=== PATIENT | female | born 1985 | race Caucasian/White ===

== ENCOUNTER 2017-06-11 10:40 | Emergency (ER) | payer MEDICAID, SELFPAY ==
[2017-06-11 10:40] VITALS: BP 134/69; PULSE 108; RESP 15; TEMP 36.1; BMI 18.4
[2017-06-11] MEDS: HYDROcodone Bitartrate/Apap 5/325 Tablet PO (11:19)
--- NOTE | 2017-06-11 11:24 | ED.DCSUM_ITS ---
- ER Visit Summary Date of Service: 06/11/17 Chief Complaint: Left ear pain History of Present Illness: The patient is a 31 F with severe left ear pain and swelling. The patient had a clot in her ear. She tried peroxide and antibiotic ointment, but the pain and swelling is getting worse. No other significant medical history or symptoms. Physical Examination: Left ear diffusely swollen. Tragus tender. Jermyn tender with motion. Trauma and hearing are grossly intact. Skin appears intact. No lymphadenopathy. Test Results: None indicated Emergency Department Course and Treatment: Ear wick placed. Will start the patient on Ciprodex. Follow-up with ENT. Treatment Plan: As above Disposition: Discharged Impression: 1. Acute otitis externa, left This note was generated with [employer] dictation software. It may contain incorrect words, spelling, and punctuation that were not noted in review of the chart prior to signing ED Disposition - Plan for ED Patient: Chief Complaint: Ear Problem Referrals: Care Physician,No Primary [Primary Care Provider] -
--- NOTE | 2017-06-11 11:24 | ED.DEP ---
ED Disposition - Plan for ED Patient: Chief Complaint: Ear Problem Instructions: ED Otitis Externa Prescriptions: Ciprofloxacin HCl/Dexameth [Ciprodex Otic Suspension] 4 drp LEFT EAR BID 7 Days drops.susp Referrals: Cesar Allen MD [STAFF PHYSICIAN] -
[2017-06-11 11:30] VITALS: PULSE 99; RESP 22; O2SAT 99
--- NOTE | 2017-06-11 11:31 | ED.RN ---
THIS NURSE REVIEWED D/C INSTRUCTIONS WITH PT. PT VERBALIZED UNDERSTANDING OF INSTRUCTIONS. PT DENIES FURTHER NEEDS OR QUESTIONS AT THIS TIME. PT AMBULATES FROM ROOM ON OWN WITHOUT ASSISTANCE FROM STAFF
== END 2017-06-11 11:32 | disposition home or self-care (01) ==
PROVIDERS: Emergency Provider Emergency Medicine
DX: H60.502 Unspecified acute noninfective otitis externa, left ear (principal); Z72.0 Tobacco use
CPT/HCPCS: 99282

== ENCOUNTER 2018-05-31 09:27 | Outpatient (CLI) | payer MEDICAID, SELFPAY ==
[2018-05-31 10:07] VITALS: BMI 28.5
[2018-05-31 10:14] LABS: Color, Urine Yellow (Yellow); Glucose, Dipstick Normal (Normal); Ketone-Dipstick Negative (Negative); Leukocyte Esterase-Dipstick 25 /ul (Negative); Mucous, Urine 0 SEEN /hpf (<or=2+); Nitrite-Dipstick Negative (Negative); Occult Blood-Urine Negative /ul (Negative); Protein-Dipstick Negative (Negative); Specific Gravity, Urine 1.005 (1.002-1.030); Urine Bilirubin Dipstick Negative (Negative); Urine Clarity Sl. Cloudy (Clear); Urine Urobilinogen Normal (Normal)
[2018-05-31 10:27] LABS: Bacteria 1+ /hpf (None Seen); Red Blood Cells-Urine 0-5 SEEN /hpf (0-5); Squamous Epithelial Cells - UA 0-5 SEEN /hpf (5-10); White Blood Cells 0-5 SEEN /hpf (0-5)
[2018-05-31 10:32] LABS: Amphetamine Urine VISTA NEGATIVE (<1000 ng/mL); Barbiturate Urine VISTA NEGATIVE (< 200 ng/mL); Benzodiazepine Urine VISTA NEGATIVE (< 200 ng/mL); Cocaine Urine VISTA NEGATIVE (< 300 ng/mL); Ecstacy Urine VISTA NEGATIVE (< 500 ng/mL); Methadone Urine VISTA NEGATIVE (< 300 ng/mL); PCP Urine VISTA NEGATIVE (< 25 ng/mL); THC Urine VISTA POSITIVE (< 50 ng/mL); Vista UDS pH Range 6
--- NOTE | 2018-05-31 18:30 | OB.TRI.NOTE ---
- Problem List (1) Feeling pelvic pressure during in third trimester, antepartum Status: Acute History of Present Illness Date of Service: 05/31/18 Was patient seen by the physician?: No Reason For Visit: R/O LABOR Date of Service: 05/31/18 Final ANILA: 06/26/18 Final ANILA Source: US <20 weeks Gestational age: 36 Weeks and 2 Days History of Present Illness: Patient presents to triage for evaluation of pelvic pressure and overall discomfort. Patient denies regular ctx or vaginal discharge. Denies vaginal bleeding or dysuria. Patient notes +FM noted. Allergies Penicillins Allergy (Verified 05/31/18 10:01) Swelling Laboratory Studies: Laboratory Tests 05/31/18 05/31/18 Range/Units 09:57 09:57 Urine Color Yellow (Yellow) Urine Clarity Sl. Cloudy (Clear) Urine pH 7.0 (5.0 - 8.0) Ur Specific [place] 1.005 (1.002-1.030) Urine Protein Negative (Negative) mg/dl Urine Glucose (UA) Normal (Normal) mg/dl Urine Ketones Negative (Negative) mg/dl Urine Occult Blood Negative (Negative) /ul Urine Nitrite Negative (Negative) Urine Bilirubin Negative (Negative) mg/dL Urine Urobilinogen Normal (Normal) mg/dl Ur Leukocyte Esterase 25 H (Negative) /ul Urine RBC 0-5 SEEN (0-5) /hpf Urine WBC 0-5 SEEN (0-5) /hpf Ur Squamous Epith Cells 0-5 SEEN (5-10) /hpf Urine Bacteria 1+ (None Seen) /hpf Urine Mucus 0 SEEN (<or=2+) /hpf Urine Opiates Screen NEGATIVE (< 300 ng/mL) Urine Methadone Screen NEGATIVE (< 300 ng/mL) Ur Barbiturates Screen NEGATIVE (< 200 ng/mL) Ur Phencyclidine Scrn NEGATIVE (< 25 ng/mL) Ur Amphetamines Screen NEGATIVE (<1000 ng/mL) U Methamphetamin-MDMA NEGATIVE (< 500 ng/mL) U Benzodiazepines Scrn NEGATIVE (< 200 ng/mL) Urine Cocaine Screen NEGATIVE (< 300 ng/mL) U Cannabinoids Screen POSITIVE H (< 50 ng/mL) Ur Drug Screen Comment Review of Systems Constitutional: Denies: Chills, Fever, Weight Change HEENT: Denies: Head Aches, Sinus Congestion, Sinus Drainage Cardiovascular: Denies: Chest Pain, Palpitations Respiratory: Denies: Cough, Shortness of breath at rest, Sputum production Gastrointestinal: Denies: Abdominal Pain, Nausea, Vomiting Genitourinary: Denies: Dysuria Gynecological: Denies: Vaginal discharge, Vaginal itching Musculoskeletal: Denies: Joint Pain, Joint Tenderness Skin: Denies: Rash, Wounds Neurological: Denies: Numbness, Tingling, Focal weakness Psychiatric: Denies: Anxiety, Depression, Homicidal Ideations, Suicidal Ideations Hematologic/ Lymphatic: Denies: Easy Bruising, Easy Bleeding Comment: ROS obtained per nursing report Physical Exam Vitals: Normotensive and Afebrile per nursing exam. PE performed by nursing staff. Estimated gestational size: Appropriate for gestational size Presentation: Cephalic Cervix Dilation (cm): 0 - Done by nursing staff Station: -3 Effacement (%): 0 NST - FHR Rate Baby A Baseline: 120 Variability:: Moderate Accelerations:: 15 x 15 Decelerations:: None NST Reactive:: Yes, Appropriate for gestational age FHR Category:: Category I Uterine Activity:: Irregular contractions q 2-8 minutes apart nonpalpable to mildly palpable Impression/Plan 32 y/o @ 36.2 weeks, False Labor, Category I FHT P: 1) Discharge to home 2) [facility] teaching and PTL precautions reviewed 3) RTC in 1 week for next scheduled visit Shelly MIRANDA
== END 2018-05-31 10:25 | disposition home or self-care (01) ==
LOC: WPOUT 09:29 → OBT 09:29
PROVIDERS: Advanced Practice Midwife; Referring Provider Obstetrics & Gynecology; Visit Provider Obstetrics & Gynecology
DX: O47.03 False labor before 37 completed weeks of gestation, third trimester (principal); Z3A.36 36 weeks gestation of pregnancy
CPT/HCPCS: 59025; 59050; 80307; 81001; 99218; G0378

== ENCOUNTER 2018-06-19 14:40 | Inpatient (IN) | payer MEDICAID, SELFPAY ==
[2018-06-19] MEDS: Lactated Ringers 1,000 ML 50 ML IV (15:37)
[2018-06-19 15:38] VITALS: BMI 28.1
[2018-06-19 16:05] LABS: Absolute Lymphocyte Count 3.66 X10^3/ul (0.83-4.51); Absolute Neutrophil Count 8.6 X10^3/uL (2.0-7.7); Basophil# 0.02 X10^3/uL; Basophil% 0.1 % (0-1); Eosinophil# 0.18 X10^3/uL; Eosinophils% 1.3 % (0-5); Hematocrit 38.9 % (37-47); Lymphocyte # 3.66 X10^3/ul (4.0); Lymphocyte % 26.8 % (19-41); Mean Corp Hgb Conc 33.4 g/gl (32-36); Mean Corpuscular Hgb 30.7 pg (27.0-32.0); Mean Corpuscular Volume 91.7 fL (81-99); Mean Platelet Vol. 11.8 fl (6.2-12.0); Monocyte# 1.13 X10^3/uL; Monocyte% 8.3 % (0-10); Neutrophil % 62.8 % (47-70); POSITIVE COUNT NO; POSITIVE DIFFERENTIAL NO; POSITIVE MORPHOLOGY NO; Platelet Count 238 K/mm3 (150-450); RBC Distribution Width CV 14.2 % (11.6-14.6); RBC Distribution Width SD 47.5 fl (35.1-43.9); Red Blood Count 4.24 M/mm3 (4.2-5.4); White Blood Count 13.7 K/mm3 (4.4-11.0)
--- NOTE | 2018-06-19 16:10 | PLAC_PTH ---
PATIENT: NATALYA TOLBERT LOC: [facility] U#:[id number] AGE/SX: 32/F ROOM: WP003 RE06/19/[address]: Dr. Ana Tarango MD : [id number] BED: 1 DIS: 06/20/2018 SPEC #: [id number] RECD: 06/20/18 12:55 STATUS: TANI RENorbert #: [id number] SAMANTHA: 06/19/18 16:[address]: Ana Tarango DEPT: SURGICAL PATHOLOGY RECD BY: Slim Michael ENTERED: 06/20/18 12:57 SP TYPE: PLACENTA OTHR DR: No Primary Care Phys Tissues: Placenta, NOS Procedures: Surgery Specimen Level V HEADER OPERATION: Vaginal delivery PRE-OP DIAGNOSIS: Precipitous delivery TISSUE SUBMITTED: Placenta MICROSCOPIC DIAGNOSIS Placenta: Placental disc - third trimester placenta (667 gm). Membranes - no pathologic diagnosis. Umbilical cord - three blood vessels and no pathologic diagnosis. SJ:rin 06/22/18 MICROSCOPIC DESCRIPTION Slides are reviewed. GROSS DESCRIPTION SPECIMEN: PLACENTA / CLINICAL INFORMATION: A. Weight: 3.491 kg B. Gestational Age: 39 weeks C. Sex: Male PLACENTAL WEIGHT (POST FIXATION): 667 gm PLACENTAL DIMENSIONS: 18.5 x 18 x 3 cm PLACENTAL SHAPE: Usual ovoid PLACENTAL WEIGHT FOR GESTATIONAL AGE: >99th percentile MEMBRANES - Present A. Insertion: Marginal B. Site of rupture from edge: 3 cm from edge of placental disc C. Color of membrane: Opaque to translucent D. Abnormalities: None UMBILICAL CORD - Present A. Color: Rooney-rust B. Insertion: Paracentral C. Length: 38 cm D. Diameter: 1.2 cm E. Number of vessels: Three F. Abnormalities: None PLACENTAL DISC - Present A. Color of surface: Bluish-rust with minimal yellow subchorionic plaque (maximal 0.4 cm) B. surface abnormalities: None C. Maternal cotyledons: Intact with minimal tears D. Attached retro placental clot: No clot E. Cut surface: Dark red and spongy. The surface shows some areas of yellow granularity. F. Lesions: None G. Separate clot: Absent SECTIONS SUBMITTED: 1. Cord, end, membranes 2. Cord, maternal end, membranes 3. Central placenta, surface 4. Peripheral placenta 5. Central placenta, maternal surface CE:rin 06/21/18 TC:5 CPT: 95862
[2018-06-19] MEDS: Oxytocin 30 units/NS 500 ml 30 UNITS/500 ML IV.SOLN 334 UNITS IV (16:16)
--- NOTE | 2018-06-19 16:33 | PCM.OB.VAG ---
Vaginal Delivery Maternal Presentation: Active Labor Amniotic Membrane Rupture Type: Spontaneous Amniotic Fluid Description: Clear Final ANILA: 06/26/18 Final ANILA Source: US <20 weeks Gestational age: 39 Weeks and 0 Days Date of Procedure: 06/19/18 Pre-Operative Diagnosis: labor Post-Operative Diagnosis: labor Surgery/ Procedure Performed: Spontaneous Vaginal Delivery Type of Anesthesia: Local with 1% lidocaine - 15 cc Description of Procedure: A vigorous male was delivered EZEKIEL over a second-degree perineal laceration. A loose nuchal cord ?1 was easily reduced. The remainder the infant was delivered with maternal pushing and gentle traction only in less than 15 seconds. I arrived in the room as patient was delivering. The Pitocin infusion was initiated for active management of the third stage. The cord was clamped and cut. The was attended to by the waiting nursing staff. The placenta was delivered spontaneously and intact. The cervix and vagina were intact. The second-degree perineal laceration was repaired with 3-0 Vicryl suture in a running standard fashion. Sponge and needle counts were correct. A vaginal sweep was completed by me. Presentation: EZEKIEL Placental Delivery Description: Spontaneous Placenta Disposition: Sent to Pathology Cord Vessel Description: 3 Vessels Nuchal Cord Compression: Without compression Cord Gases drawn per routine: ABG, VBG Cord Entanglement: Around neck x 1, loose Drain: - - none Estimated Blood Loss: 200 Infant A gender: Male Episiotomy Description: None Laceration: 2nd degree - perineal Medications given after delivery: IV Pitocin Complications: None
--- NOTE | 2018-06-19 16:39 | PCM.HP.OB ---
History Date of Admission: 06/19/18 Final ANILA: 06/26/18 Final ANILA Source: US <20 weeks Gestational age: 39 Weeks and 0 Days History of this : This is a 32 year-old, who presents at 39 weeks gestation complaining of contractions and some bloody show. was complicated today by tobacco use, marijuana use, bipolar disorder, had polyhydramnios that that has now resolved to normal fluid level. Arrived to the office mehdi and was found to be 3 cm 90% effaced and she was sent to labor and delivery for admission. Allergies Penicillins Allergy (Verified 05/31/18 10:01) Swelling Home Medications: Home Medications Caplet 05/31/18 Risperdal 15 05/31/18 Smoking Status: Current every day smoker Alcohol: None Substance Use Type: Marijuana Number of Fetus(es): 1 History Past Pregnancies: Past Pregnancies Delivery Date Name GA/Weeks Outcome Route Weight Gender Labor Length Anesthesia Delivery Location Provider FOB Expected Infant Delivery Method: Spontaneous Vaginal Review of Systems Constitutional: Denies: Chills, Fever Cardiovascular: Denies: Chest Pain, Edema Respiratory: Denies: Cough Genitourinary: Denies: Dysuria Skin: Denies: Rash Physical Exam General: Alert, No apparent distress, - - Appears uncomfortable, breathing through contractions Cardiovascular: Regular rate Lungs: Normal air movement Abdomen: Soft, Non-Distended, Gravid, Appropriate for Gestational Age Extremities:: Other - Trace edema MANAGER TRUCK: Normal external genitalia Estimated gestational size: Appropriate for gestational size Presentation: Cephalic Assessment/Plan All Active Problems Feeling pelvic pressure during in third trimester, antepartum (Acute) This is a 32 year-old, avid a 4 para 3 at 39 weeks gestation in spontaneous labor. #1 admit for expectant management for vaginal delivery. Labor was precipitous, and she did not have time after admission to place the epidural. Labor and delivery were precipitous. Placenta sent to pathology due to precipitous nature of delivery.
[2018-06-19] MEDS: Oxytocin 30 units/NS 500 ml 30 UNITS/500 ML IV.SOLN 167 UNITS IV (16:46)
[2018-06-19] MEDS: Naproxen 250 MG Tablet 500 MG PO (17:43)
[2018-06-19 18:49] LABS: Amphetamine Urine VISTA NEGATIVE (<1000 ng/mL); Barbiturate Urine VISTA NEGATIVE (< 200 ng/mL); Benzodiazepine Urine VISTA NEGATIVE (< 200 ng/mL); Cocaine Urine VISTA NEGATIVE (< 300 ng/mL); Ecstacy Urine VISTA NEGATIVE (< 500 ng/mL); Methadone Urine VISTA NEGATIVE (< 300 ng/mL); PCP Urine VISTA NEGATIVE (< 25 ng/mL); THC Urine VISTA POSITIVE (< 50 ng/mL); Vista UDS pH Range 7
[2018-06-19 19:46] VITALS: BP 135/80; PULSE 62; RESP 19; TEMP 37.1; O2SAT 98
--- NOTE | 2018-06-19 19:49 | NURSING ---
194- During initial assessment, pt. resting in bed with visitor and FOB present in room. During conversation, visitor mentioned something about needing a license to drive in which the FOB replied No you don't. I have [address] against me and that don't keep me from driving. This RN concerned if FOB is driving MOB and home upon discharge.
[2018-06-19] MEDS: Acetaminophen 500 MG Tablet 1000 MG PO (19:53)
[2018-06-19 23:43] VITALS: BP 108/63; PULSE 61; RESP 15; TEMP 36.9; O2SAT 95
[2018-06-20] VITALS (7 sets, daily range): BP systolic 119–152; BP diastolic 75–87; PULSE 58–76; RESP 16–18; TEMP 36.2–37.3; O2SAT 96–99
[2018-06-20] MEDS: Naproxen 250 MG Tablet 500 MG PO ×2 (01:41→10:28)
[2018-06-20] MEDS: Acetaminophen 500 MG Tablet 1000 MG PO ×2 (04:46→14:54)
--- NOTE | 2018-06-20 06:49 | PCM.PN.OB ---
Subjective: Pain well controlled, average lochia. Some nausea earlier but feeling better now. - Physical Exam General: Alert, Cooperative, No apparent distress Vital Signs Temp Pulse Resp BP Pulse Ox 99.1 F 58 L 18 145/87 H 99 06/20/18 04:41 06/20/18 04:47 06/20/18 04:41 06/20/18 04:47 06/20/18 04:41 Oxygen Delivery Method Room Air Weight: 69.853 kg Body Mass Index (BMI) 28.1 Intake and Output for Last 24 Hours 06/18/18 06/19/18 06/20/18 23:59 23:59 23:59 Output Total 900 / 900 Balance -900 / -900 Laboratory Tests Past 24 Hrs 06/19/18 06/19/18 06/19/18 15:05 15:05 18:00 WBC 13.7 H RBC 4.24 Hgb 13.0 Hct 38.9 MCV 91.7 MCH 30.7 MCHC 33.4 RDW 14.2 RDW Differential 47.5 H Plt Count 238 MPV 11.8 Immature Gran % (Auto) 0.700 Neut % (Auto) 62.8 Lymph % (Auto) 26.8 [place] % (Auto) 8.3 Eos % (Auto) 1.3 Baso % (Auto) 0.1 Absolute Neuts (auto) 8.6 H Absolute Lymphs (auto) 3.66 Total Counted Not Reportable Urine Opiates Screen NEGATIVE Urine Methadone Screen NEGATIVE Ur Barbiturates Screen NEGATIVE Ur Phencyclidine Scrn NEGATIVE Ur Amphetamines Screen NEGATIVE U Methamphetamin-MDMA NEGATIVE U Benzodiazepines Scrn NEGATIVE Urine Cocaine Screen NEGATIVE U Cannabinoids Screen POSITIVE H Ur Drug Screen Comment Blood Type B POSITIVE Antibody Screen NEGATIVE Medical Necessity - Tobacco Use Smoking Status: Current every day smoker Assessment/Plan All Active Problems Feeling pelvic pressure during in third trimester, antepartum (Acute) day #1 status post spontaneous vaginal delivery. Mental health team consult pending. is bottlefeeding and doing well. She would like to be discharged home later today if that is okay with pediatrics. I discussed with her from maternal standpoint that was acceptable but we would need to wait until other assessments are completed for final disposition on this
--- NOTE | 2018-06-20 06:54 | PCM.DCVAG ---
Discharge Diet: No Restrictions Discharge Activity: Return to Normal Activity, May not drive while taking narcotic pain medications., May Shower May resume sexual activity in: 4-6 weeks Additional Activity Instructions:: Nothing in the vagina for 4-6 weeks. You may return to work/school in 6 weeks. Call your doctor if your incision/area has: Continuous Slow Oozing, Sudden Increased Bleeding, Increased Pain/ Swelling, Increased Redness, Foul Smelling Discharge Additional Instructions: If you experience any of the following, contact your healthcare provider. Bleeding that soaks a pad every hour for 2 hours Fever 100.4 or higher Unrelieved incision or abdominal pain Swelling, redness, discharge or bleeding from your incision or episiotomy site Your incision begins to separate Problems urinating (including inability to urinate or burning while urinating). Visual changes Severe headache Flu-like symptoms Pain or redness in one of both of your breasts Pain, warmth, tenderness or swelling in your legs, especially the calf area Frequent nausea and vomiting Symptoms of depression or anxiety If you experience any of the following, call 911 or go to the nearest Emergency Room. Chest pain Problems breathing Seizure activity Partial or complete paralysis of a body part, slurred speech, weakness or drooping of the face, or a sudden inability to walk or hold your balance Allergies/Adverse Reactions: Allergies Penicillins Allergy (Verified 05/31/18 10:01) Swelling Medications to take at Discharge Caplet 05/31/18 Risperdal 15 05/31/18 Ibuprofen [Motrin] 800 mg PO TID PRN PRN #60 tablet 06/20/18 The following prescriptions were given: Ibuprofen [Motrin] 800 mg PO TID PRN PRN #60 tablet PRN Reason: Pain Please Follow Up With: [phone] When: Call to make an appointment with your provider's office in 1-2 and 6 weeks or as needed Primary Care Physician: Care Physician,No Primary [Primary Care Provider] - Test Results: Test results from this visit will be discussed in further detail at your follow-up appointment, if applicable.
--- NOTE | 2018-06-20 06:55 | DCINST_ITS ---
Discharge Diet: No Restrictions Discharge Activity: Return to Normal Activity, May not drive while taking narcotic pain medications., May Shower May resume sexual activity in: 4-6 weeks Additional Activity Instructions:: Nothing in the vagina for 4-6 weeks. You may return to work/school in 6 weeks. Call your doctor if your incision/area has: Continuous Slow Oozing, Sudden Increased Bleeding, Increased Pain/ Swelling, Increased Redness, Foul Smelling Discharge Additional Instructions: If you experience any of the following, contact your healthcare provider. * Bleeding that soaks a pad every hour for 2 hours * Fever 100.4 or higher * Unrelieved incision or abdominal pain * Swelling, redness, discharge or bleeding from your incision or episiotomy site * Your incision begins to separate * Problems urinating (including inability to urinate or burning while urinating). * Visual changes * Severe headache * Flu-like symptoms * Pain or redness in one of both of your breasts * Pain, warmth, tenderness or swelling in your legs, especially the calf area * Frequent nausea and vomiting * Symptoms of depression or anxiety If you experience any of the following, call 911 or go to the nearest Emergency Room. * Chest pain * Problems breathing * Seizure activity * Partial or complete paralysis of a body part, slurred speech, weakness or drooping of the face, or a sudden inability to walk or hold your balance Allergies/Adverse Reactions: Allergies Penicillins Allergy (Verified 05/31/18 10:01) Swelling Medications to take at Discharge Caplet 05/31/18 Risperdal 15 05/31/18 Ibuprofen [Motrin] 800 mg PO TID PRN PRN #60 tablet 06/20/18 The following prescriptions were given: Ibuprofen [Motrin] 800 mg PO TID PRN PRN #60 tablet PRN Reason: Pain Please Follow Up With: [phone] When: Call to make an appointment with your provider's office in 1-2 and 6 weeks or as needed Primary Care Physician: Care Physician,No Primary [Primary Care Provider] - Test Results: Test results from this visit will be discussed in further detail at your follow- up appointment, if applicable.
[2018-06-20] MEDS: Dibucaine 30 GM Tube 1 APPLIC TOPICAL (07:59)
[2018-06-20] MEDS: MedroxyPROGESTERone 150 MG/ML Syringe IM (10:32)
--- NOTE | 2018-06-20 18:07 | NURSING ---
Called and spoke with Rach from [facility] and patient ok for discharge and will have a [facility] Monday. Dr Saul and Frankie notified.
[2018-06-22 14:58] LABS: Pathology Specimen OB SEE PATHOLOGY REPORT
== END 2018-06-20 19:20 | disposition home or self-care (01) | DRG 560 ==
PROVIDERS: Admitting Provider Obstetrics & Gynecology; Referring Provider Obstetrics & Gynecology; Visit Provider Obstetrics & Gynecology
DX: O69.81X0 Labor and delivery complicated by cord around neck, without compression, not applicable or unspecified (principal); O70.1 Second degree perineal laceration during delivery; O99.334 Smoking (tobacco) complicating childbirth; F17.200 Nicotine dependence, unspecified, uncomplicated; O99.324 Drug use complicating childbirth; F12.90 Cannabis use, unspecified, uncomplicated; Z3A.39 39 weeks gestation of pregnancy; Z37.0 Single live birth
CPT/HCPCS: 59025; 59050; 80307; 85025; 86850; 86900; 88307; 99218; J7120; G0378

== ENCOUNTER 2018-10-29 01:45 | Emergency (ER) | payer MEDICAID, SELFPAY ==
[2018-10-29 01:47] VITALS: BP 139/80; PULSE 105; RESP 16; TEMP 36.5; O2SAT 97; BMI 27.2
--- NOTE | 2018-10-29 02:01 | CT_ITS ---
STUDY: CT ABDOMEN AND PELVIS WITHOUT CONTRAST REASON FOR EXAM: Female, 32 years old. Abdominal pain, nausea and vomiting RADIATION DOSAGE (If Supplied By Facility): CTDIvol = ( 6.96 ) mGy, DLP = ( 330.33 ) mGycm TECHNIQUE: Transaxial images were obtained from the dome of the diaphragm to the symphysis pubis without oral contrast, and without intravenous contrast. Sagittal and coronal images were reconstructed. Individualized dose optimization techniques were used for this CT. COMPARISON: None. FINDINGS: The visualized lung bases are unremarkable. The visualized portions of the heart are within normal limits. Normal liver. Normal gallbladder and extrahepatic biliary system. Normal spleen. Normal pancreas. Normal bilateral adrenal glands. Normal right kidney. Normal left kidney. Normal visualized stomach. Normal small intestine. Normal colon. The appendix is visualized and appears normal. Normal abdominal aorta. Normal inferior vena cava. Normal retroperitoneum. Normal urinary bladder. Normal abdominal wall. Normal osseous structures. There are bilateral breast implants. CT/Abdomen/Pelvis without Cont IMPRESSION: Negative unenhanced CT of the abdomen and pelvis for acute abnormality. Electronically Signed: Marck Peña, at 3:31 EDT Tel , Service support ,
[2018-10-29] MEDS: proMETHazine 25 MG/ML Syringe 12.5 MG IV (02:25)
[2018-10-29] MEDS: 0.9% Normal Saline 1,000 ML 999 ML IV (02:25)
[2018-10-29] MEDS: Dicyclomine 20 MG/2 ML Vial IM (02:25)
[2018-10-29 02:32] LABS: Absolute Lymphocyte Count 3.02 X10^3/uL (0.83-4.51); Absolute Neutrophil Count 7.3 X10^3/uL (2.0-7.7); Basophil# 0.03 X10^3/uL; Basophil% 0.3 % (0-1); Eosinophil# 0.16 X10^3/uL; Eosinophils% 1.4 % (0-5); Hematocrit 44.6 % (37-47); Hemoglobin 15.2 g/dL (12.0-15.0); Lymphocyte # 3.02 X10^3/ul (4.0); Lymphocyte % 26.6 % (19-41); Mean Corp Hgb Conc 34.1 g/dL (32-36); Mean Corpuscular Hgb 30.5 pg (27.0-32.0); Mean Corpuscular Volume 89.4 fL (81-99); Monocyte# 0.78 X10^3/uL; Monocyte% 6.9 % (0-10); NRBC Flagged by Analyzer 0 % (0-5); Neutrophil % 64.4 % (47-70); Platelet Count 331 K/mm3 (150-450); RBC Distribution Width CV 12.9 % (11.6-14.6); RBC Distribution Width SD 42.4 fl (35.1-43.9); Red Blood Count 4.99 M/mm3 (4.2-5.4); White Blood Count 11.3 K/mm3 (4.4-11.0)
[2018-10-29 02:44] LABS: ALB/GLOB Ratio 1.3 RATIO (0.9-2.4); AST(SGOT) 17 U/L (15-37); Alanine Aminotransfer ALT/SGPT 32 U/L (13-56); Albumin, Serum 4.5 g/dL (3.2-5.0); Alkaline Phosphatase 74 U/L (45-117); Anion Gap 9 (5-15); BUN 7 mg/dL (7-18); BUN/Creat Ratio 8.1 RATIO (10-20); Calcium,Total 8.9 mg/dL (8.5-10.1); Chloride 113 mmol/L (98-107); Creatinine, Serum 0.86 mg/dL (0.55-1.02); EST Glomerular Filtration Rate 80 mL/min (>60); Est Glom Filt Rate - Afr Amer 97 mL/min (>60); Globulin 3.5 g/dL (2.2-4.2); Glucose 94 mg/dL (74-106); Lipase 144 U/L (73-393); Potassium 3.2 mmol/L (3.5-5.1); Sodium Level 143 mmol/L (136-145)
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
--- NOTE | 2018-10-29 03:40 | ED.DEP ---
ED Disposition - Plan for ED Patient: Instructions: Alcohol Intoxication, ABDOMINAL PAIN, Unknown Cause, (Female) Referrals: Care Physician,No Primary [Primary Care Provider] -
[2018-10-29 04:41] VITALS: BP 134/60; PULSE 89; RESP 18; O2SAT 96
== END 2018-10-29 04:41 | disposition home or self-care (01) ==
LOC: ED 02:36
PROVIDERS: Emergency Provider Emergency Medicine
DX: F10.129 Alcohol abuse with intoxication, unspecified (principal); Y90.7 Blood alcohol level of 200-239 mg/100 ml; R10.9 Unspecified abdominal pain; Z72.0 Tobacco use
CPT/HCPCS: 74176; 80053; 80320; 83690; 85025; 96361; 96372; 96374; 99285; J7030; A4216; G0480

== ENCOUNTER 2018-11-09 08:01 | Emergency (ER) | payer MEDICAID, SELFPAY ==
[2018-11-09 08:02] VITALS: BP 131/98; PULSE 99; RESP 17; TEMP 36.9; O2SAT 97; BMI 26.1
--- NOTE | 2018-11-09 08:12 | ED.DCSUM_ITS ---
History of Present Illness Chief Complaint: Abd Pain Informant: Patient Onset: Month(s) Context: Sudden Onset - 1 day after cervical biopsy Timing: Intermittent, Waxes and wanes Quality: Nausea like pain, nausea is intense Location: Right upper quadrant epigastric area Current Severity: Moderate Maximum Severity: Severe Worsened by: Attempt to eat or drink anything Relieved by: Nothing Associated Symptoms: Nausea and diarrhea Narrative: Patient is a 32-year-old woman who presents with nausea and diarrhea for greater than 2 months. She states symptoms started 1 day after cervical biopsy for abnormal cells . She also reports vaginal bleeding for 3 weeks. She denies dysuria, frequency, urgency or hematuria. She denies blood or mucus in her stool. She does not know family history. She denies specifically intolerance to greasy or fried foods. She denies cardiac or respiratory symptoms. She denies radiation of the discomfort. She localizes the pain to the right upper quadrant/epigastric region. Prior similar symptoms: No Recent Illness/Hospitalization: No Past Medical History - Allergies and Home Meds Allergies/Adverse Reactions: Allergies Penicillins Allergy (Verified 11/09/18 08:02) Swelling Primary Care Physician: Care Physician,No Primary [NON-STAFF] - Prior records reviewed: Yes Surgical History: noncontributory Lives: Spouse/ Significant Other, With Family Smoking Status: Current every day smoker Alcohol: Rare Drugs: None Review of Systems General: Reports: Weight loss. Denies: Chills, Fever, Malaise, Sweats Eyes: Denies: Visual changes - bilaterally, Diplopia ENT: Denies: Rhinorrhea, Sore throat Cardiovascular: Denies: Chest pain, Palpitations Respiratory: Denies: Dyspnea, Cough, Dyspnea on exertion Gastrointestinal: Reports: Abdominal pain, Nausea, Diarrhea. Denies: Vomiting, Constipation, Melena, Hematochezia Genitourinary: Denies: Dysuria, Hematuria, Frequency Musculoskeletal: Denies: Myalgias, Arthralgias, Neck pain, Back pain, Swelling, Extremity Pain Skin: Denies: Rash, Wounds Neurological: Denies: Headache, Weakness, Numbness Hematologic: Denies: Easy bruising, Easy bleeding Allergy: Denies: Uticaria, Swelling of the mouth Physical Exam Vital Signs/Narrative: Vital Signs Temp Pulse Resp BP Pulse Ox 11/09/18 08:02 98.4 F 99 17 131/98 H 97 Inital Vital Signs reviewed: Yes General: Well nourished, Well developed, Acute Distress Head: Normocephalic, Atraumatic Eyes: Perrl, EOMI. Negative for: Pale conjunctiva, Scleral icterus, - ENT: No rhinorrhea, TM's clear, Dry mucous membranes. Negative for: Nasal congestion, Sinus tenderness Neck: Supple, Nontender, No lymphadenopathy, No JVD Cardiovascular: Regular rate, Regular rhythm, No murmurs, Normal S1, Normal S2 Respiratory: No distress, CTA bilaterally, Chest nontender Abdomen: Soft, Nondistended, No masses, Tender, Guarding, Hypoactive bowel sounds, Chisholm's sign. Negative for: Nontender, Normal bowel sounds, Rebound tenderness, Hyperactive bowel sounds, Hepatomegaly, Splenomegaly, Mass, Pulsatile mass, Ventral hernia, Inguinal hernia, Umbilical hernia Back: Nontender, Normal Inspection. Negative for: CVA tenderness Extremities: Nontender, No edema Skin: Normal color, No rash, No Trauma. Negative for: Cyanosis, Diaphoresis, Jaundice Neurological: Alert, Oriented x3, Cranial nerves II-XII grossly intact, Normal Strength, Normal Sensation, Normal Gait Psychological: Tearful Diagnostic/Tx/Re-eval Impressions Abdomen Ultrasound 11/09/18 08:51 IMPRESSION: Mild fatty change of the liver parenchyma. No evidence of cholelithiasis, or acute cholecystitis. No evidence of right hydronephrosis. Electronically Signed: Charli German MD at 10:34 EDT Tel [phone], Service support , 11/09/18 08:51 Abdomen Limited [US] Stat Laboratory Results 11/09/18 11/09/18 11/09/18 08:25 08:25 08:25 WBC 10.4 RBC 5.40 Hgb 16.3 H Hct 49.0 H MCV 90.7 MCH 30.2 MCHC 33.3 RDW Std Deviation 44.4 H RDW Coeff of Ashlee 13.3 Plt Count 342 MPV 10.1 Immature Gran % (Auto) 0.300 Neut % (Auto) 70.8 H Lymph % (Auto) 20.2 [place] % (Auto) 7.4 Eos % (Auto) 1.1 Baso % (Auto) 0.2 Absolute Neuts (auto) 7.4 Absolute Lymphs (auto) 2.10 Nucleated RBC % 0 Sodium 140 Potassium 3.6 Chloride 107 Carbon Dioxide 24.0 Anion Gap 9 BUN 11 Creatinine 0.89 Estim Creat Clear Calc 70.44 Est GFR (MDRD) Af Amer 93 Est GFR (MDRD) Non-Af 77 BUN/Creatinine Ratio 12.4 Glucose 104 Calcium 9.4 Total Bilirubin 0.60 AST 13 L ALT 30 Alkaline Phosphatase 73 Total Protein 8.5 H Albumin 4.6 Globulin 3.9 Albumin/Globulin Ratio 1.2 Lipase 122 Urine Color Rhona Urine Clarity Cloudy Urine pH 6.0 Ur Specific [place] 1.025 Urine Protein 100 H Urine Glucose (UA) Normal Urine Ketones 15 H Urine Occult Blood 250 H Urine Nitrite Negative Urine Bilirubin 1 H Urine Urobilinogen 1 H Ur Leukocyte Esterase 100 H Urine RBC 25-50 SEEN Urine WBC 0-5 SEEN Ur Squamous Epith Cells 0-5 SEEN Urine Bacteria 1+ Urine Mucus 1+ Ultrasound, blood work are all unremarkable. Patient was seen walking the gaines at 1035. She looks much better. We will have her follow-up with PCP to make referral to training program manager since she is had symptoms for greater than 2 months. - Medical Decision Making Patient presents with right upper quadrant epigastric pain with diarrhea. To evaluate patient's symptoms conference of metabolic panel was obtained to assess hepatic enzymes and lipase to evaluate for pancreatitis. CBC to evaluate for white count and H&H since this may represent cholecystitis. With history of epigastric/right upper quadrant pain and diarrhea differential would include biliary colic, cholecystitis acute on chronic, inflammatory bowel disorder, gastritis/peptic ulcer disease, because she reports pain 1 to 2 hours after eating need to consider superior mesenteric artery syndrome. Doubt p ostprandial ischemia. She received 4 mg of Zofran and 4 mg of morphine IV push for her nausea and pain. Nurse obtain urine specimen. Urine is dark. Uncertain whether this is contaminated with menstrual bleeding versus bilirubin versus other cause. Complete urinalysis was ordered. She was reassessed at 0850. Markedly better. There is essentially no discomfort to palpation epigastrium. She still has tenderness the right upper quadrant with a clinical Chisholm sign. Patient was asked specifically to detail her diarrhea. Upon further questioning the diarrhea has not been constant. Which adds to the differential ureteral bowel syndrome. Since she is still having right upper quadrant pain with a clinical Chisholm sign will obtain ultrasound the gallbladder. ED Disposition - Plan for ED Patient: Disposition: Home or Assisted Living Diagnosis: Upper abdominal pain of unknown etiology, Intermittent diarrhea Instructions: ABDOMINAL PAIN, Unknown Cause, (Female) Prescriptions: Dicyclomine HCl [Bentyl] 20 mg PO TIDAC #20 cap Prescription Printed Referrals: Care Physician,No Primary [NON-STAFF] - Tremaine Rueda MD [NON-STAFF] - Keep Becki appointment
[2018-11-09] MEDS: Ondansetron 4 MG/2 ML Vial IV (08:28)
[2018-11-09] MEDS: Morphine 4 MG/ML Syringe IV ×2 (08:28→08:58)
[2018-11-09] MEDS: 0.9% Normal Saline 1,000 ML 1000 ML IV (08:29)
[2018-11-09 08:33] LABS: Absolute Neutrophil Count 7.4 X10^3/uL (2.0-7.7); Basophil# 0.02 X10^3/uL; Basophil% 0.2 % (0-1); Color, Urine Amber (Yellow); Eosinophil# 0.11 X10^3/uL; Eosinophils% 1.1 % (0-5); Glucose, Dipstick Normal (Normal); Hemoglobin 16.3 g/dL (12.0-15.0); Ketone-Dipstick 15 mg/dl (Negative); Leukocyte Esterase-Dipstick 100 /ul (Negative); Lymphocyte % 20.2 % (19-41); Mean Corp Hgb Conc 33.3 g/dL (32-36); Mean Corpuscular Hgb 30.2 pg (27.0-32.0); Mean Corpuscular Volume 90.7 fL (81-99); Mean Platelet Vol. 10.1 fl (6.2-12.0); Monocyte# 0.77 X10^3/uL; Monocyte% 7.4 % (0-10); NRBC Flagged by Analyzer 0 % (0-5); Neutrophil # 7.36 X10^3/uL (2.7-7.7); Neutrophil % 70.8 % (47-70); Nitrite-Dipstick Negative (Negative); Occult Blood-Urine 250 /ul (Negative); Platelet Count 342 K/mm3 (150-450); Protein-Dipstick 100 mg/dl (Negative); RBC Distribution Width CV 13.3 % (11.6-14.6); RBC Distribution Width SD 44.4 fl (35.1-43.9); Specific Gravity, Urine 1.025 (1.002-1.030); Urine Bilirubin Dipstick 1 mg/dL (Negative); Urine Clarity Cloudy (Clear); Urine Urobilinogen 1 mg/dl (Normal); White Blood Count 10.4 K/mm3 (4.4-11.0)
[2018-11-09 08:38] LABS: Bacteria 1+ /hpf (None Seen); Mucous, Urine 1+ /hpf (<or=2+); Red Blood Cells-Urine 25-50 SEEN /hpf (0-5); Squamous Epithelial Cells - UA 0-5 SEEN /hpf (5-10); White Blood Cells 0-5 SEEN /hpf (0-5)
[2018-11-09 08:48] LABS: ALB/GLOB Ratio 1.2 RATIO (0.9-2.4); AST(SGOT) 13 U/L (15-37); Alanine Aminotransfer ALT/SGPT 30 U/L (13-56); Albumin, Serum 4.6 g/dL (3.2-5.0); Alkaline Phosphatase 73 U/L (45-117); Anion Gap 9 (5-15); BUN 11 mg/dL (7-18); BUN/Creat Ratio 12.4 RATIO (10-20); Calcium,Total 9.4 mg/dL (8.5-10.1); Chloride 107 mmol/L (98-107); Creatinine, Serum 0.89 mg/dL (0.55-1.02); EST Glomerular Filtration Rate 77 mL/min (>60); Est Glom Filt Rate - Afr Amer 93 mL/min (>60); Estimated Creatinine Clearance 70.44 ml/min; Globulin 3.9 g/dL (2.2-4.2); Glucose 104 mg/dL (74-106); Lipase 122 U/L (73-393); Potassium 3.6 mmol/L (3.5-5.1); Protein, Total 8.5 g/dL (6.4-8.2); Sodium Level 140 mmol/L (136-145)
--- NOTE | 2018-11-09 08:51 | US_ITS ---
STUDY: ABDOMINAL ULTRASOUND - RIGHT UPPER QUADRANT REASON FOR VISIT: Female, 32 years old. Pain for 2 months TECHNIQUE: Ultrasound evaluation of the right upper quadrant was performed with real-time and static rust-scale imaging. TECHNICAL QUALITY: Adequate. COMPARISON: None. FINDINGS: Liver: The liver measures 14.3 cm. There is increased echogenicity consistent with mild fatty infiltration. The bile ducts are within normal limits. There is hepatic color flow. The direction of portal flow is hepatopetal. There is no demonstrated mass lesion. Gallbladder: Normal distended gallbladder. The gallbladder wall measures 2.2 mm. There is a negative sonographic Chisholm's sign. There is no pericholecystic fluid. There are no gallstones. Common Bile Duct (C.B.D.): The common bile duct measures 3.8 mm. Pancreas: Normal size of the head, body and tail of the pancreas. There is normal echogenicity of the pancreas. There is no demonstrated pancreatic mass or cyst. Right Kidney: Normal size of the right kidney. The right kidney measures 10 x 4.1 x 4.2 cm. Normal renal cortex. The right cortex measures 1.3 cm. There is no demonstrated renal mass or cyst. There is no right hydronephrosis. US/Abdomen Limited IMPRESSION: Mild fatty change of the liver parenchyma. No evidence of cholelithiasis, or acute cholecystitis. No evidence of right hydronephrosis. Electronically Signed: Charli German MD at 10:34 EDT Tel [phone], Service support ,
--- NOTE | 2018-11-09 10:45 | ED.DCSUM_ITS ---
- ER Visit Summary Date of Service: 11/09/18 Chief Complaint: [] History of Present Illness: The patient is a 32 F [] Physical Examination: [] Test Results: [] Emergency Department Course and Treatment: [] Treatment Plan: [] Disposition: [] Impression: [] This note was generated with [employer] dictation software. It may contain incorrect words, spelling, and punctuation that were not noted in review of the chart prior to signing ED Disposition - Plan for ED Patient: Disposition: Home or Assisted Living Diagnosis: Upper abdominal pain of unknown etiology, Intermittent diarrhea Instructions: ABDOMINAL PAIN, Unknown Cause, (Female) Prescriptions: Dicyclomine HCl [Bentyl] 20 mg PO TIDAC #20 cap Prescription Printed Ondansetron [Zofran Odt] 4 mg PO Q8H PRN PRN #10 tab PRN Reason: Nausea Prescription Printed Referrals: Tremaine Rueda MD [NON-STAFF] - Keep [facility] appointment Care Physician,No Primary [NON-STAFF] -
[2018-11-09 10:47] VITALS: BP 108/78; PULSE 66; RESP 16; O2SAT 97
== END 2018-11-09 10:48 | disposition home or self-care (01) ==
PROVIDERS: Emergency Provider Emergency Medicine; Family Provider Physician Assistant
DX: R10.13 Epigastric pain (principal); R10.11 Right upper quadrant pain; R19.7 Diarrhea, unspecified; F17.200 Nicotine dependence, unspecified, uncomplicated
CPT/HCPCS: 76705; 80053; 81001; 83690; 85025; 96361; 96374; 96375; 96376; 99284; J7030; A4216; J2405

== ENCOUNTER 2020-10-31 17:32 | Emergency (ER) | payer MEDICAID, SELFPAY ==
[2020-10-31 17:33] VITALS: BP 144/89; PULSE 110; RESP 18; TEMP 36.5; O2SAT 98; BMI 26.4
--- NOTE | 2020-10-31 18:07 | ED.VIS.GI ---
HPI HPI - GI History of Present Illness Chief Complaint: Abd Pain Informant: patient Narrative Narrative: 34-year-old female presents the emergency department with abdominal pain. Patient states that last week she had vomiting and diarrhea. She states that she forgot to take her Seroquel and hydroxyzine and her Pepcid. She also noted that she had a very slight cough but by Monday night she was feeling better. On Monday she began to experience a sharp pain in the right oblique area of her abdomen that was worse with movement and repositioning. That got better but then this morning she began to have epigastric pain and again started vomiting. She notes a burning sensation going up into her chest. She states when she would try to drink water it would burn going down. Patient states that she knows she should be taking her medications but is under a lot of stress right now so she has been forgetting. [facility] Medical History Anxiety Home Medications famotidine 20 mg PO BID #28 tablet 10/31/20 [Rx Last Taken Unknown] hydroxyzine HCl 50 mg PO TID 10/31/20 [History Last Taken Unknown] quetiapine [Seroquel XR] 400 mg PO QHS 10/31/20 [History Last Taken Unknown] sucralfate [Carafate] 1 g PO Q6H #56 tab 10/31/20 [Rx Last Taken Unknown] Allergy/AdvReac Type Severity Reaction Status Date / Time Penicillins Allergy Swelling Verified 11/09/18 08:02 Surgical History History of breast augmentation Social History (Updated 10/31/20 @ 18:[address] Kade Valdez DO) Smoking Status: Current every day smoker tobacco type: cigarettes substance use type: does not use ROS ROS ED Constitutional Constitutional ED: Denies chills or weight loss Eyes Eyes: Denies change in vision or diplopia ENT ENT ED: Denies ear pain, rhinorrhea or sore throat Cardiovascular Cardiovascular: Reports chest pain; Denies orthopnea, palpitations or racing heartbeat Respiratory/Chest Respiratory/Chest: Denies cough, dyspnea or orthopnea Gastrointestinal Gastrointestinal: Reports abdominal pain, diarrhea, nausea and vomiting Genitourinary Genitourinary ED: Denies dysuria, hematuria or urinary frequency Musculoskeletal Musculoskeletal: Denies arthralgias or myalgias Integumentary Denies abscess or rash Neurologic Neurologic: Denies headache(s) or weakness Psychiatric Psychiatric: Denies anxiety, depression, suicidal ideation or suicidal thoughts Endocrine Endocrinology: Denies polydipsia, polyphagia or polyuria Allergic/Immunologic Allergic/Immunologic ED: Denies mouth swelling, tongue swelling or urticaria EXAM Physical Exam Const Vital Signs: 10/31/20 17:33 10/31/20 19:32 Temperature 97.7 F L Temperature Source Oral Pulse Rate 110 H Respiratory Rate 18 16 Blood Pressure 144/89 H Blood Pressure Mean 107 Pulse Ox 98 Oxygen Delivery Method Room Air Positive well nourished and well developed General Appearance ED: well developed HEENT Reports normocephalic, head/scalp atraumatic and moist mucous membranes Eyes PERRL and EOMs intact bilaterally Neck no lymphadenopathy, supple and no JVD Resp normal respiratory effort and clear to auscultation bilaterally Cardio regular rate, regular rhythm and no murmurs GI normal to inspection, nondistended, normoactive bowel sounds and non-tender Palpation: soft Back/Spine no CVA tenderness and normal ROM Extremity normal to inspection General Extremety ED: Negative for edema General Extremity: Negative for edema Neuro oriented x3 and CN's II-XII intact bilaterally Sensorium / Orientation: alert Motor Exam: strength 5/5 throughout Psych Psych Narrative: Patient is crying. However she stops crying stops tearing is able to tell me her history. Mood & Affect: tearful; Negative for depressed Skin no rashes or lesions noted and no wounds MDM MDM MDM Narrative Medical decision making narrative: Patient's labs showed a mild leukocytosis of 13.6. Hemoglobin 15.7. CMP and lipase normal. CT the pelvis was no acute disease. Patient received a GI cocktail. Based on her symptoms I think the patient most likely has a gastritis. She had a gastroenteritis last week followed by what I would suspect was oblique muscle strain. She has been off of her Pepcid as well as her psychiatric medicines. She needs to resume these. We can add in Carafate to her twice daily Pepcid regimen Lab Data Attestation: I reviewed the patient's lab results. Labs: Laboratory Results - last 24 hr 10/31/20 10/31/20 10/31/20 17:49 17:49 17:49 WBC 13.6 H RBC 5.58 H Hgb 15.7 H Hct 48.3 H MCV 86.6 MCH 28.1 MCHC 32.5 RDW Std Deviation 42.5 RDW Coeff of Ashlee 13.4 Plt Count 423 MPV 9.9 Immature Gran % (Auto) 0.400 Neut % (Auto) 78.5 H Lymph % (Auto) 15.3 L [place] % (Auto) 5.4 Eos % (Auto) 0.2 Baso % (Auto) 0.2 Absolute Neuts (auto) 10.7 H Absolute Lymphs (auto) 2.08 Nucleated RBC % 0 Sodium 139 Potassium 4.1 Chloride 107 Carbon Dioxide 24.0 Anion Gap 8 BUN 11 Creatinine 0.84 Estim Creat Clear Calc 73.23 Est GFR (MDRD) Af Amer 98 Est GFR (MDRD) Non-Af 81 BUN/Creatinine Ratio 13.1 Glucose 110 H Calcium 10.1 Total Bilirubin 0.80 AST 23 ALT 38 Alkaline Phosphatase 95 Total Protein 8.3 H Albumin 4.5 Globulin 3.8 Albumin/Globulin Ratio 1.2 Lipase 79 Serum , Qual NEGATIVE Radiography Diagnostic Testing: Radiology Impression Abdomen/Pelvis CT 10/31/20 18:40 IMPRESSION: Normal abdomen, no acute disease. Electronically Signed: Fausto Arcos MD at 19:17 EDT Tel , Service support , Discharge Plan Triage Chief Complaint: Abd Pain ED Provider: Kade Valdez Dx/Rx/DC Orders Clinical Impression: Esophagitis, Gastritis Instructions: ED PEPTIC ULCER vs GASTRITIS Prescriptions: New famotidine [famotidine] 20 MG tablet 20 mg PO BID Qty: 28 RF: 0 sucralfate [Carafate] 1 gram tablet 1 g PO Q6H Qty: 56 RF: 0 No Action hydroxyzine HCl 50 mg tablet 50 mg PO TID RF: 0 quetiapine [Seroquel XR] 400 mg Tablet Extended Release 24 Hr 400 mg PO QHS RF: 0 Primary Care Provider: Claudia Reynoso NP Referrals: Claudia Reynoso NP, GENERAL SUPERINTENDENT-C [Primary Care Provider] - 10-14 Days if not better Activity Restrictions/Additional Instructions: Please resume all your medications. It is very important that you take them regularly Disposition Disposition: Home, Self Care
[2020-10-31 18:21] LABS: Absolute Lymphocyte Count 2.08 X10^3/uL (0.83-4.51); Absolute Neutrophil Count 10.7 X10^3/uL (2.0-7.7); Basophil# 0.03 X10^3/uL; Basophil% 0.2 % (0-1); Eosinophil# 0.03 X10^3/uL; Eosinophils% 0.2 % (0-5); Hematocrit 48.3 % (37-47); Hemoglobin 15.7 g/dL (12.0-15.0); Lymphocyte # 2.08 X10^3/ul (0.83-4.51); Lymphocyte % 15.3 % (19-41); Mean Corp Hgb Conc 32.5 g/dL (32-36); Mean Corpuscular Hgb 28.1 pg (27.0-32.0); Mean Corpuscular Volume 86.6 fL (81-99); Mean Platelet Vol. 9.9 fl (6.2-12.0); Monocyte# 0.73 X10^3/uL; Monocyte% 5.4 % (0-10); NRBC Flagged by Analyzer 0 % (0-5); Neutrophil # 10.66 X10^3/uL (2.7-7.7); Neutrophil % 78.5 % (47-70); Platelet Count 423 K/mm3 (150-450); RBC Distribution Width CV 13.4 % (11.6-14.6); RBC Distribution Width SD 42.5 fl (35.1-43.9); Red Blood Count 5.58 M/mm3 (4.2-5.4); White Blood Count 13.6 K/mm3 (4.4-11.0)
[2020-10-31 18:27] LABS: Internal QC Validated? YES +Cl - CLEAR BKGD; Pregnancy, Serum, hCG Quali. NEGATIVE Negative
[2020-10-31 18:37] LABS: ALB/GLOB Ratio 1.2 RATIO (0.9-2.4); AST(SGOT) 23 U/L (15-37); Alanine Aminotransfer ALT/SGPT 38 U/L (13-56); Albumin, Serum 4.5 g/dL (3.2-5.0); Alkaline Phosphatase 95 U/L (45-117); Anion Gap 8 (5-15); BUN 11 mg/dL (7-18); BUN/Creat Ratio 13.1 RATIO (10-20); Calcium,Total 10.1 mg/dL (8.5-10.1); Chloride 107 mmol/L (98-107); Creatinine, Serum 0.84 mg/dL (0.55-1.02); EST Glomerular Filtration Rate 81 mL/min (>60); Est Glom Filt Rate - Afr Amer 98 mL/min (>60); Estimated Creatinine Clearance 73.23 ml/min; Globulin 3.8 g/dL (2.2-4.2); Glucose 110 mg/dL (74-106); Lipase 79 U/L (73-393); Potassium 4.1 mmol/L (3.5-5.1); Protein, Total 8.3 g/dL (6.4-8.2); Sodium Level 139 mmol/L (136-145)
[2020-10-31] MEDS: Famotidine 20 MG Tablet 40 MG PO (18:39)
[2020-10-31] MEDS: Mag Hydrox/Al Hydrox/Simeth 30 ML UDC PO (18:39)
--- NOTE | 2020-10-31 18:40 | CT_ITS ---
STUDY: CT ABDOMEN AND PELVIS WITH CONTRAST REASON FOR EXAM: Female, 34 years old. Abdominal pain RADIATION DOSAGE (If Supplied By Facility): CTDIvol = ( 14.51 ) mGy, DLP = ( 592.39 ) mGycm TECHNIQUE: CT images were obtained from the dome of the diaphragm to the symphysis pubis without oral contrast. IV 100mL Isovue-370 was administered. Sagittal and coronal images were reconstructed. Individualized dose optimization techniques were used for this CT. COMPARISON: 29 October 2018 FINDINGS: The visualized lung bases are unremarkable. The visualized portions of the heart are within normal limits. Normal liver. Normal gallbladder and extrahepatic biliary system. Normal spleen. Normal pancreas. Normal bilateral adrenal glands. Normal right kidney. Normal left kidney. Normal visualized stomach. Normal small intestine. Normal colon. The appendix is visualized and appears normal. Normal abdominal aorta. Normal inferior vena cava. Normal retroperitoneum. Normal urinary bladder. IUD is in place. Normal abdominal wall. Normal osseous structures. CT/Abdomen/Pelvis W IV Cont ONLY IMPRESSION: Normal abdomen, no acute disease. Electronically Signed: Fausto Arcos MD at 19:17 EDT Tel , Service support ,
[2020-10-31 19:32] VITALS: RESP 16
== END 2020-10-31 19:51 | disposition home or self-care (01) ==
PROVIDERS: Emergency Provider Emergency Medicine; PCP Nurse Practitioner Family
DX: K20.90 Esophagitis, unspecified without bleeding (principal); K29.70 Gastritis, unspecified, without bleeding; F41.9 Anxiety disorder, unspecified; Z79.899 Other long term (current) drug therapy; F17.210 Nicotine dependence, cigarettes, uncomplicated
CPT/HCPCS: 74177; 80053; 83690; 84703; 85025; 99284; Q9967; A4216

== ENCOUNTER 2021-08-30 03:57 | Emergency (ER) | payer MEDICAID, SELFPAY ==
[2021-08-30 03:58] VITALS: PULSE 93; RESP 18; TEMP 36.6; O2SAT 100; BMI 24.3
--- NOTE | 2021-08-30 04:04 | CT_ITS ---
STUDY: CT ABDOMEN AND PELVIS WITH CONTRAST REASON FOR EXAM: Female, 35 years old. epigastric pain RADIATION DOSAGE (If Supplied By Facility): CTDIvol = ( 11.25 ) mGy, DLP = ( 594.95 ) mGycm TECHNIQUE: Transaxial images were obtained from the dome of the diaphragm to the symphysis pubis without oral contrast. IV 100mL Isovue-370 was administered. Sagittal and coronal images were reconstructed. Individualized dose optimization techniques were used for this CT. COMPARISON: None. FINDINGS: LOWER CHEST: Partially visualized breast prosthesis.. LIVER: Normal. GALLBLADDER/BILE DUCTS: Normal. PANCREAS: Normal. SPLEEN: Normal. ADRENAL GLANDS: Normal. KIDNEYS/URETERS/BLADDER: Normal. RETROPERITONEUM/AORTA: Normal. BOWEL/MESENTERY: Mild wall thickening in the ascending colon, transverse colon and descending colon. No bowel dilatation. APPENDIX: Identified and normal. PERITONEUM: Normal. REPRODUCTIVE ORGANS: Intrauterine device in place. BONES/SOFT TISSUES: No acute abnormality. OTHER: None. CT/Abdomen/Pelvis W IV Cont ONLY IMPRESSION: Mild colonic wall thickening, consistent with colitis. Electronically Signed: Gutierrez Huff MD at 5:38 EDT ,
--- NOTE | 2021-08-30 04:05 | EKG12_ITS ---
Test Reason : SKM Blood Pressure : / mmHG Vent. Rate : 092 BPM Atrial Rate : 091 BPM P-R Int : 000 ms QRS Dur : 078 ms QT Int : 392 ms P-R-T Axes : 000 066 047 degrees QTc Int : 484 ms Somatic/Motion Artifact Consider Sinus vs Ectopic Atrial Rhythm Consider Repeat ECG Abnormal ECG Confirmed by MIKHAIL GUPTA, MARIA DEL CARMEN ([id number]), editor magazine ANN ROBERTS ([id number]) on 09/01/2021 9:54:52 AM Referred By: APRIL Confirmed By:MARIA DEL CARMEN ELIZONDO MD
--- NOTE | 2021-08-30 04:07 | EDS_ITS ---
HPI History of Present Illness Chief Complaint: Abd Pain Informant: patient Narrative Narrative: Patient presents with epigastric abdominal pain. Of note, it is very hard to get details from this patient. She is very distracted by the pain at this time. We will get her meds for pain and nausea and see if we can get better history and exam. Even approaching the patient makes her pain level increase. Touching the patient where it does not hurt makes her pain level increase. This makes examining the actual painful area harder. Patient states that she woke up this morning and she has pain in the upper abdomen in the middle. Its not in the chest. Its not down low in the abdomen. She states normally she gets pain in the left lower quadrant but she is not having pain there now. She cannot say what her normal pain is in the left lower quadrant or what causes it. Patient has had nausea vomiting and diarrhea with this. But no black or bloody material has been seen. No fevers or chills. It sounds like she felt fine when she went to bed. She has not been having symptoms prior to this. Pain does not go through to her back. [facility] Medical History Anxiety Home Medications famotidine 20 mg PO BID #28 tablet 10/31/20 [Rx Last Taken Unknown] hydroxyzine HCl 50 mg PO TID 10/31/20 [History Last Taken Unknown] ondansetron 4 mg PO Q8H PRN PRN #15 tab 10/31/20 [Rx Last Taken Unknown] quetiapine [Seroquel XR] 400 mg PO QHS 10/31/20 [History Last Taken Unknown] sucralfate [Carafate] 1 g PO Q6H #56 tab 10/31/20 [Rx Last Taken Unknown] ciprofloxacin HCl [Cipro] 500 mg PO BID #14 tab 08/30/21 [Rx Last Taken Unknown] dicyclomine 20 mg PO TID PRN #20 tab 08/30/21 [Rx Last Taken Unknown] metronidazole 500 mg PO Q8H 7 Days #21 tab 08/30/21 [Rx Last Taken Unknown] ondansetron 4 mg PO Q8H PRN #10 tab 08/30/21 [Rx Last Taken Unknown] Allergy/AdvReac Type Severity Reaction Status Date / Time Penicillins Allergy Swelling Verified 11/09/18 08:02 Surgical History History of breast augmentation Social History Smoking Status: Current every day smoker tobacco type: cigarettes substance use type: does not use ROS ROS ED Constitutional Constitutional ED: Denies fever(s) Cardiovascular Cardiovascular: Denies chest pain or palpitations Respiratory/Chest Respiratory/Chest: Denies dyspnea Gastrointestinal Gastrointestinal: Reports abdominal pain, diarrhea, nausea and vomiting; Denies constipation or melena Genitourinary Genitourinary ED: Denies dysuria, hematuria or urinary frequency Musculoskeletal Musculoskeletal: Denies back pain Integumentary Denies rash Neurologic Neurologic: Denies headache(s) Psychiatric Psychiatric: Reports anxiety and depression Endocrine Endocrinology: Denies polydipsia or polyuria Allergic/Immunologic Allergic/Immunologic ED: Denies urticaria EXAM Physical Exam Const Vital Signs: 08/30/21 03:58 Temperature 97.8 F Temperature Source Temporal Pulse Rate 93 Respiratory Rate 18 Pulse Ox 100 Positive well nourished and well developed Constitutional Narrative: Patient is rocking back and forth on the bed holding emesis basin. She has trouble sitting still. She is awake and alert. General Appearance ED: well developed HEENT Reports moist mucous membranes Eyes General Eye ED: Negative for pale conjunctiva or scleral icterus Neck no JVD Chest Wall inspection of chest normal Resp normal respiratory effort and clear to auscultation bilaterally Cardio regular rate and regular rhythm GI GI Narrative: Abdomen is positive bowel sounds. I cannot assess for tenderness because even lifting her shirt seems to hurt. When I touch in the left lower quadrant she screams out. But when I asked her if it hurt to press there she states it did not hurt but it just hurts in the epigastric area. Pressing did not change anything. We will get her some meds for pain and see if we can get a more consistent quality exam. Back/Spine no CVA tenderness Extremity normal to inspection General Extremety ED: Negative for edema or tenderness General Extremity: Negative for edema Neuro oriented x3 Sensorium / Orientation: alert Psych Attitude: agitated Mood & Affect: anxious and tearful Skin no rashes or lesions noted MDM MDM MDM Narrative Medical decision making narrative: Patient's recheck. She is feeling much better now. She is much calmer. She has a history of anxiety and thinks she was having a bit of a panic attack. She still has some epigastric discomfort but is markedly less. Patient states she has never had colitis. She thinks there is a history of possible Crohn's colitis in the family. She does have elevated white count. I think this could be both infectious but also demargination contributed. Her lactate was minimally elevated. Slight elevation of total bilirubin and glucose. Mild drop in potassium. This should self correct. is negative. CT scan showed some mild colonic wall thickening that could be consistent with colitis. I do not think this is an ischemic colitis on a young healthy person. With her white count, symptoms and the CT findings we will treat with antibiotics. We will also give her some meds for nausea and cramping. She should follow-up to get rechecked by her physician in 1 to 2 days. If she is developing worsening pain, fevers, vomiting, diarrhea, blood in the stool or any other concerns she should return. Lab Data Attestation: I reviewed the patient's lab results. Labs: Laboratory Results - last 24 hr 08/30/21 08/30/21 08/30/21 04:00 04:00 04:00 WBC 20.3 H RBC 5.30 Hgb 16.0 H Hct 46.0 MCV 86.8 MCH 30.2 MCHC 34.8 RDW Std Deviation 38.4 RDW Coeff of Ashlee 12.0 Plt Count 348 MPV 9.4 Immature Gran % (Auto) 0.500 Neut % (Auto) 82.0 H Lymph % (Auto) 12.0 L [place] % (Auto) 5.1 Eos % (Auto) 0.2 Baso % (Auto) 0.2 Absolute Neuts (auto) 16.6 H Absolute Lymphs (auto) 2.44 Nucleated RBC % 0 Sodium 136 Potassium 3.0 L Chloride 103 Carbon Dioxide 20.0 L Anion Gap 13 BUN 18 Creatinine 0.88 Estim Creat Clear Calc 69.23 Est GFR (MDRD) Af Amer 93 Est GFR (MDRD) Non-Af 77 BUN/Creatinine Ratio 20.5 H Glucose 172 H Lactic Acid 2.1 H* Calcium 9.5 Total Bilirubin 1.60 H AST 16 ALT 26 Alkaline Phosphatase 80 Troponin I High Sens < 3 L Total Protein 8.7 H Albumin 5.1 H Globulin 3.6 Albumin/Globulin Ratio 1.4 Lipase 83 Serum , Qual 08/30/21 04:00 WBC RBC Hgb Hct MCV MCH MCHC RDW Std Deviation RDW Coeff of Ashlee Plt Count MPV Immature Gran % (Auto) Neut % (Auto) Lymph % (Auto) [place] % (Auto) Eos % (Auto) Baso % (Auto) Absolute Neuts (auto) Absolute Lymphs (auto) Nucleated RBC % Sodium Potassium Chloride Carbon Dioxide Anion Gap BUN Creatinine Estim Creat Clear Calc Est GFR (MDRD) Af Amer Est GFR (MDRD) Non-Af BUN/Creatinine Ratio Glucose Lactic Acid Calcium Total Bilirubin AST ALT Alkaline Phosphatase Troponin I High Sens Total Protein Albumin Globulin Albumin/Globulin Ratio Lipase Serum , Qual NEGATIVE Radiography Diagnostic Testing: Clinical Impression(s) from Imaging Studies Abdomen/Pelvis CT 08/30/21 04:04 IMPRESSION: Mild colonic wall thickening, consistent with colitis. Electronically Signed: Gutierrez Huff MD at 5:38 EDT , EKG Initial EKG: Comments: EKG done for upper abdominal pain. EKG read by me shows baseline variation. Patient did have a lot of motion at the time. It appears to be normal sinus. Overall rate of 92. No ventricular ectopy noted. It is possible that it is junctional but does appear sinus. No acute ST elevation depression that can be seen on this EKG with limitations. WI interval, QRS duration are normal. QTc is toward the longer and at 484 ms. Discharge Plan Triage Chief Complaint: Abd Pain ED Provider: Jamie Aguilar Dx/Rx/DC Orders Clinical Impression: Colitis, Abdominal pain Instructions: ED Understanding Colitis Prescriptions: New metronidazole 500 mg tablet 500 mg PO Q8H 7 Days Qty: 21 RF: 0 ciprofloxacin HCl [Cipro] 500 mg tablet 500 mg PO BID Qty: 14 RF: 0 dicyclomine 20 mg tablet 20 mg PO TID PRN (Reason: cramps) Qty: 20 RF: 0 ondansetron 4 mg tablet,disintegrating 4 mg PO Q8H PRN (Reason: nausea and vomiting) Qty: 10 RF: 0 No Action hydroxyzine HCl 50 mg tablet 50 mg PO TID RF: 0 quetiapine [Seroquel XR] 400 mg Tablet Extended Release 24 Hr 400 mg PO QHS RF: 0 famotidine [famotidine] 20 MG tablet 20 mg PO BID Qty: 28 RF: 0 sucralfate [Carafate] 1 gram tablet 1 g PO Q6H Qty: 56 RF: 0 ondansetron [ondansetron] 4 MG tablet 4 mg PO Q8H PRN PRN (Reason: Nausea) Qty: 15 RF: 0 Primary Care Provider: Claudia Reynoso NP Referrals: Claudia Reynoso NP, [employer] [Primary Care Provider] - 2 Days Disposition Disposition: Home, Self Care
[2021-08-30] MEDS: 0.9% Normal Saline 1,000 ML 1000 ML IV (04:18)
[2021-08-30] MEDS: Ondansetron 4 MG/2 ML Vial IV (04:18)
[2021-08-30] MEDS: Morphine 4 MG/ML Syringe IV (04:18)
[2021-08-30 04:21] LABS: Absolute Lymphocyte Count 2.44 X10^3/uL (0.83-4.51); Absolute Neutrophil Count 16.6 X10^3/uL (2.0-7.7); Basophil# 0.04 X10^3/uL; Basophil% 0.2 % (0-1); Eosinophil# 0.04 X10^3/uL; Eosinophils% 0.2 % (0-5); Lymphocyte # 2.44 X10^3/ul (0.83-4.51); Mean Corp Hgb Conc 34.8 g/dL (32-36); Mean Corpuscular Hgb 30.2 pg (27.0-32.0); Mean Corpuscular Volume 86.8 fL (81-99); Mean Platelet Vol. 9.4 fl (6.2-12.0); Monocyte# 1.03 X10^3/uL; Monocyte% 5.1 % (0-10); NRBC Flagged by Analyzer 0 % (0-5); Neutrophil # 16.61 X10^3/uL (2.7-7.7); Platelet Count 348 K/mm3 (150-450); RBC Distribution Width SD 38.4 fl (35.1-43.9); White Blood Count 20.3 K/mm3 (4.4-11.0)
[2021-08-30 04:38] LABS: ALB/GLOB Ratio 1.4 RATIO (0.9-2.4); AST(SGOT) 16 U/L (15-37); Alanine Aminotransfer ALT/SGPT 26 U/L (13-56); Albumin, Serum 5.1 g/dL (3.2-5.0); Alkaline Phosphatase 80 U/L (45-117); Anion Gap 13 (5-15); BUN 18 mg/dL (7-18); BUN/Creat Ratio 20.5 RATIO (10-20); Calcium,Total 9.5 mg/dL (8.5-10.1); Chloride 103 mmol/L (98-107); Creatinine, Serum 0.88 mg/dL (0.55-1.02); EST Glomerular Filtration Rate 77 mL/min (>60); Est Glom Filt Rate - Afr Amer 93 mL/min (>60); Estimated Creatinine Clearance 69.23 ml/min; Globulin 3.6 g/dL (2.2-4.2); Glucose 172 mg/dL (74-106); Lipase 83 U/L (73-393); Protein, Total 8.7 g/dL (6.4-8.2); Sodium Level 136 mmol/L (136-145); Troponin-I HS < 3 pg/mL (3.0-54.0)
[2021-08-30 04:42] LABS: Internal QC Validated? YES +Cl - CLEAR BKGD; Lactic Acid 2.1 mmol/L (0.4-1.9); Pregnancy, Serum, hCG Quali. NEGATIVE Negative
[2021-08-30 05:29] LABS: Mucous, Urine 0 SEEN /hpf (<or=2+); Red Blood Cells-Urine 0 SEEN /hpf (0-5); White Blood Cells 0 SEEN /hpf (0-5)
[2021-08-30 05:44] LABS: Color, Urine Yellow (Yellow); Glucose, Dipstick Normal (Normal); Ketone-Dipstick 15 mg/dl (Negative); Leukocyte Esterase-Dipstick Negative /ul (Negative); Nitrite-Dipstick Negative (Negative); Occult Blood-Urine 50 /ul (Negative); Protein-Dipstick 30 mg/dl (Negative); Urine Bilirubin Dipstick Negative (Negative); Urine Clarity Clear (Clear); Urine Urobilinogen Normal (Normal)
[2021-08-30 05:50] LABS: Bacteria RARE /hpf (None Seen); Squamous Epithelial Cells - UA 0-5 SEEN /hpf (5-10)
[2021-08-30 06:03] VITALS: BP 128/88; PULSE 88; RESP 18; O2SAT 99
[2021-08-30 08:14] LABS: Reflex Lactate? Y
== END 2021-08-30 06:06 | disposition home or self-care (01) ==
PROVIDERS: Emergency Provider Emergency Medicine; PCP Nurse Practitioner Family; Visit Provider Emergency Medicine
DX: K52.9 Noninfective gastroenteritis and colitis, unspecified (principal); R10.13 Epigastric pain; F17.210 Nicotine dependence, cigarettes, uncomplicated
CPT/HCPCS: 74177; 80053; 81001; 83605; 83690; 84484; 84703; 85025; 93005; 96361; 96374; 96375; 99282; J7030; Q9967; A4216; J2405

== ENCOUNTER 2021-11-09 22:51 | Emergency (ER) | payer MEDICAID, SELFPAY ==
[2021-11-09 22:52] VITALS: BP 158/90; PULSE 75; RESP 15; TEMP 36.6; O2SAT 99; BMI 24.5
--- NOTE | 2021-11-09 23:37 | ED.VIS.GI ---
HPI HPI - GI History of Present Illness Chief Complaint: Abd Pain Informant: patient Abdominal Pain/Flank Pain Onset: Today Context: Sudden Onset Timing: Continuous Quality: Cramping Location: Epigastric Worsened by: Nothing Relieved by: Nothing Nausea/Vomiting/Emesis GI Symptom: Positive for Nausea and Vomiting Quality: Positive for Nonbilious; Negative for Blood streaks, Coffee ground or Hematemesis Diarrhea/Melena/Hematochezia GI Symptom: Negative for Diarrhea, Melena or Hematochezia Associated Symptoms Associated Symptoms: Negative for Dysuria, Frequency or Hematuria Narrative Narrative: Patient presents with abdominal pain that began today. Patient states that began tonight. Patient states her pain is over the epigastric area. Patient denies any radiation of the pain. Patient describes her pain as cramping. Patient states nothing makes it better and nothing makes it worse. Patient admits to some nausea and vomiting but denies any hematemesis or coffee-ground emesis. Patient denies any diarrhea, melena, or hematochezia. Patient denies any urinary complaints. Patient states she is currently on her menstrual cycle. [facility] Medical History Anxiety Home Medications famotidine 20 mg tablet 20 mg PO BID #28 TABLETS 10/31/20 [Rx Last Taken Unknown] hydroxyzine HCl 50 mg tablet 50 mg PO TID 10/31/20 [History Last Taken Unknown] ondansetron 4 mg disintegrating tablet 4 mg PO Q8H PRN PRN Nausea #15 tabs 10/31/20 [Rx Last Taken Unknown] quetiapine 400 mg tablet,extended release 24 hr (Seroquel XR) 400 mg PO QHS 10/31/20 [History Last Taken Unknown] sucralfate 1 gram tablet (Carafate) 1 g PO Q6H #56 tabs 10/31/20 [Rx Last Taken Unknown] ciprofloxacin HCl 500 mg tablet (Cipro) 500 mg PO BID #14 tabs 08/30/21 [Rx Last Taken Unknown] dicyclomine 20 mg tablet 20 mg PO TID PRN cramps #20 tabs 08/30/21 [Rx Last Taken Unknown] metronidazole 500 mg tablet 500 mg PO Q8H 7 days #21 tabs 08/30/21 [Rx Last Taken Unknown] ondansetron 4 mg disintegrating tablet 4 mg PO Q8H PRN nausea and vomiting #10 tabs 08/30/21 [Rx Last Taken Unknown] omeprazole 20 mg capsule,delayed release 20 mg PO DAILY #30 CAPSULES 11/10/21 [Rx Last Taken Unknown] ondansetron 4 mg disintegrating tablet 4 mg PO Q8H PRN PRN Nausea #10 tabs 11/10/21 [Rx Last Taken Unknown] Allergy/AdvReac Type Severity Reaction Status Date / Time Penicillins Allergy Swelling Verified 11/09/21 22:52 Surgical History History of breast augmentation Social History Smoking Status: Current every day smoker tobacco type: cigarettes substance use type: does not use ROS ROS ED Constitutional Constitutional ED: Denies chills or fever(s) Eyes Eyes: Denies blurry vision or change in vision ENT ENT ED: Denies rhinorrhea or sore throat Cardiovascular Cardiovascular: Denies chest pain or palpitations Respiratory/Chest Respiratory/Chest: Denies cough or dyspnea Gastrointestinal Gastrointestinal: Reports abdominal pain, nausea and vomiting; Denies diarrhea or melena Genitourinary Genitourinary ED: Denies dysuria or hematuria Musculoskeletal Musculoskeletal: Denies back pain or neck pain Integumentary Denies abscess or rash Neurologic Neurologic: Denies headache(s) or weakness Allergic/Immunologic Allergic/Immunologic ED: Denies mouth swelling or urticaria EXAM Physical Exam Const Vital Signs: 11/09/21 22:52 Temperature 97.8 F Temperature Source Temporal Pulse Rate 75 Respiratory Rate 15 Blood Pressure 158/90 H Blood Pressure Mean 112 Pulse Ox 99 Oxygen Delivery Method Room Air Positive well nourished and well developed General Appearance ED: well developed HEENT Reports moist mucous membranes Neck supple and no JVD Resp normal respiratory effort and clear to auscultation bilaterally Cardio regular rate, regular rhythm and no murmurs GI normal to inspection, nondistended, normoactive bowel sounds Palpation: soft and tender epigastric; Negative for guarding or rebound tenderness present Extremity normal to inspection General Extremety ED: Negative for edema or tenderness General Extremity: Negative for edema Neuro oriented x3, CN's II-XII intact bilaterally and no sensory deficits noted Sensorium / Orientation: alert Motor Exam: strength 5/5 throughout Psych mental status grossly normal Skin no rashes or lesions noted MDM MDM MDM Narrative Medical decision making narrative: Patient was given IV fluids, morphine, and Zofran. CBC was within normal limits. Comprehensive metabolic profile was essentially within normal limits. Lipase was normal. Serum hCG was negative. Urinalysis was within normal limits. Patient was advised of her findings. Patient was given prescriptions for Zofran and omeprazole. Patient was instructed to follow-up with her primary care physician in 5 to 7 days. Patient understood and was agreeable with the plan. All questions were answered. Lab Data Attestation: I reviewed the patient's lab results. Labs: Laboratory Results - last 24 hr 11/09/21 11/09/21 11/09/21 23:22 23:22 23:22 WBC 10.2 RBC 4.93 Hgb 15.4 H Hct 45.3 MCV 91.9 MCH 31.2 MCHC 34.0 RDW Std Deviation 42.6 RDW Coeff of Ashlee 12.6 Plt Count 284 MPV 10.4 Immature Gran % (Auto) 0.300 Neut % (Auto) 47.4 Lymph % (Auto) 44.5 H [place] % (Auto) 6.2 Eos % (Auto) 1.5 Baso % (Auto) 0.1 Absolute Neuts (auto) 4.8 Absolute Lymphs (auto) 4.53 H Nucleated RBC % 0 Sodium 140 Potassium 3.2 L Chloride 107 Carbon Dioxide 28.0 Anion Gap 5 BUN 6 L Creatinine 0.92 Estim Creat Clear Calc 66.22 Est GFR (MDRD) Af Amer 87 Est GFR (MDRD) Non-Af 72 BUN/Creatinine Ratio 6.5 L Glucose 86 Calcium 9.2 Total Bilirubin 0.40 AST 12 L ALT 23 Alkaline Phosphatase 60 Total Protein 7.8 Albumin 4.4 Globulin 3.4 Albumin/Globulin Ratio 1.3 Lipase 111 Serum , Qual NEGATIVE Urine Color Urine Clarity Urine pH Ur Specific [place] Urine Protein Urine Glucose (UA) Urine Ketones Urine Occult Blood Urine Nitrite Urine Bilirubin Urine Urobilinogen Ur Leukocyte Esterase Urine RBC Urine WBC Ur Squamous Epith Cells Urine Bacteria Urine Mucus 11/09/21 23:22 WBC RBC Hgb Hct MCV MCH MCHC RDW Std Deviation RDW Coeff of Ashlee Plt Count MPV Immature Gran % (Auto) Neut % (Auto) Lymph % (Auto) [place] % (Auto) Eos % (Auto) Baso % (Auto) Absolute Neuts (auto) Absolute Lymphs (auto) Nucleated RBC % Sodium Potassium Chloride Carbon Dioxide Anion Gap BUN Creatinine Estim Creat Clear Calc Est GFR (MDRD) Af Amer Est GFR (MDRD) Non-Af BUN/Creatinine Ratio Glucose Calcium Total Bilirubin AST ALT Alkaline Phosphatase Total Protein Albumin Globulin Albumin/Globulin Ratio Lipase Serum , Qual Urine Color Yellow Urine Clarity Clear Urine pH 5.0 Ur Specific [place] 1.025 Urine Protein 15 H Urine Glucose (UA) Normal Urine Ketones Negative Urine Occult Blood 10 H Urine Nitrite Negative Urine Bilirubin Negative Urine Urobilinogen Normal Ur Leukocyte Esterase Negative Urine RBC 0-5 SEEN Urine WBC 0 SEEN Ur Squamous Epith Cells 0-5 SEEN Urine Bacteria RARE Urine Mucus 1+ Discharge Plan Triage Chief Complaint: Abd Pain ED Provider: Alec eParce Dx/Rx/DC Orders Clinical Impression: Epigastric abdominal pain, Gastritis Instructions: ED Abdominal Pain Unkn Cause Fem, ED Gastritis (Adult) Prescriptions: New omeprazole [omeprazole] 20 mg capsule,delayed release(DR/EC) 20 mg PO DAILY Qty: 30 0RF ondansetron [ondansetron] 4 mg tablet,disintegrating 4 mg PO Q8H PRN PRN (Reason: Nausea) Qty: 10 0RF No Action hydroxyzine HCl 50 mg tablet 50 mg PO TID Label Comments: Take 3 Tablet By Oral Route 1 times per day quetiapine [Seroquel XR] 400 mg Tablet Extended Release 24 Hr 400 mg PO QHS famotidine [famotidine] 20 MG tablet 20 mg PO BID Qty: 28 0RF sucralfate [Carafate] 1 gram tablet 1 g PO Q6H Qty: 56 0RF ondansetron [ondansetron] 4 MG tablet 4 mg PO Q8H PRN PRN (Reason: Nausea) Qty: 15 0RF metronidazole 500 mg tablet 500 mg PO Q8H 7 Days Qty: 21 0RF ciprofloxacin HCl [Cipro] 500 mg tablet 500 mg PO BID Qty: 14 0RF dicyclomine 20 mg tablet 20 mg PO TID PRN (Reason: cramps) Qty: 20 0RF ondansetron 4 mg tablet,disintegrating 4 mg PO Q8H PRN (Reason: nausea and vomiting) Qty: 10 0RF Primary Care Provider: Claudia Reynoso NP Referrals: Claudia Reynoso NP, [employer] [Primary Care Provider] - 3-5 Days Disposition Disposition: Home, Self Care
[2021-11-09] MEDS: Morphine 4 MG/ML Syringe IV (23:51)
[2021-11-09] MEDS: 0.9% Normal Saline 1,000 ML 1000 ML IV (23:51)
[2021-11-09 23:52] LABS: White Blood Cells 0 SEEN /hpf (0-5)
[2021-11-09] MEDS: Ondansetron 4 MG/2 ML Vial IV (23:52)
[2021-11-09 23:54] LABS: Absolute Lymphocyte Count 4.53 X10^3/uL (0.83-4.51); Absolute Neutrophil Count 4.8 X10^3/uL (2.0-7.7); Basophil# 0.01 X10^3/uL; Basophil% 0.1 % (0-1); Eosinophil# 0.15 X10^3/uL; Eosinophils% 1.5 % (0-5); Hematocrit 45.3 % (37-47); Hemoglobin 15.4 g/dL (12.0-15.0); Lymphocyte # 4.53 X10^3/ul (0.83-4.51); Lymphocyte % 44.5 % (19-41); Mean Corpuscular Hgb 31.2 pg (27.0-32.0); Mean Corpuscular Volume 91.9 fL (81-99); Mean Platelet Vol. 10.4 fl (6.2-12.0); Monocyte# 0.63 X10^3/uL; Monocyte% 6.2 % (0-10); NRBC Flagged by Analyzer 0 % (0-5); Neutrophil # 4.83 X10^3/uL (2.7-7.7); Neutrophil % 47.4 % (47-70); Platelet Count 284 K/mm3 (150-450); RBC Distribution Width CV 12.6 % (11.6-14.6); RBC Distribution Width SD 42.6 fl (35.1-43.9); Red Blood Count 4.93 M/mm3 (4.2-5.4); White Blood Count 10.2 K/mm3 (4.4-11.0)
[2021-11-09 23:56] LABS: Color, Urine Yellow (Yellow); Glucose, Dipstick Normal (Normal); Ketone-Dipstick Negative (Negative); Leukocyte Esterase-Dipstick Negative /ul (Negative); Nitrite-Dipstick Negative (Negative); Occult Blood-Urine 10 /ul (Negative); Protein-Dipstick 15 mg/dl (Negative); Specific Gravity, Urine 1.025 (1.002-1.030); Urine Bilirubin Dipstick Negative (Negative); Urine Clarity Clear (Clear); Urine Urobilinogen Normal (Normal)
[2021-11-10 00:08] LABS: Bacteria RARE /hpf (None Seen); Mucous, Urine 1+ /hpf (<or=2+); Red Blood Cells-Urine 0-5 SEEN /hpf (0-5); Squamous Epithelial Cells - UA 0-5 SEEN /hpf (5-10)
[2021-11-10 00:17] LABS: Internal QC Validated? YES +Cl - CLEAR BKGD; Pregnancy, Serum, hCG Quali. NEGATIVE Negative
[2021-11-10 00:25] LABS: ALB/GLOB Ratio 1.3 RATIO (0.9-2.4); AST(SGOT) 12 U/L (15-37); Alanine Aminotransfer ALT/SGPT 23 U/L (13-56); Albumin, Serum 4.4 g/dL (3.2-5.0); Alkaline Phosphatase 60 U/L (45-117); Anion Gap 5 (5-15); BUN 6 mg/dL (7-18); BUN/Creat Ratio 6.5 RATIO (10-20); Calcium,Total 9.2 mg/dL (8.5-10.1); Chloride 107 mmol/L (98-107); Creatinine, Serum 0.92 mg/dL (0.55-1.02); EST Glomerular Filtration Rate 72 mL/min (>60); Est Glom Filt Rate - Afr Amer 87 mL/min (>60); Estimated Creatinine Clearance 66.22 ml/min; Globulin 3.4 g/dL (2.2-4.2); Glucose 86 mg/dL (74-106); Lipase 111 U/L (73-393); Potassium 3.2 mmol/L (3.5-5.1); Protein, Total 7.8 g/dL (6.4-8.2); Sodium Level 140 mmol/L (136-145)
[2021-11-10 01:39] VITALS: BP 132/74; PULSE 70; PULSE 74; RESP 16; O2SAT 97; O2SAT 98
== END 2021-11-10 01:50 | disposition home or self-care (01) ==
PROVIDERS: Emergency Provider Emergency Medicine; PCP Nurse Practitioner Family; Visit Provider Emergency Medicine
DX: R10.13 Epigastric pain (principal); K29.70 Gastritis, unspecified, without bleeding; F17.210 Nicotine dependence, cigarettes, uncomplicated
CPT/HCPCS: 80053; 81001; 83690; 84703; 85025; 96361; 96374; 96375; 99283; J7030; A4216; J2405

== ENCOUNTER 2022-02-06 15:59 | Emergency (ER) | payer MEDICAID, SELFPAY ==
[2022-02-06 16:00] VITALS: BP 133/121; PULSE 87; RESP 18; TEMP 36.8; O2SAT 100; BMI 23.3
--- NOTE | 2022-02-06 16:25 | RAD_ITS ---
STUDY: X-RAY CHEST REASON FOR EXAM: Female, 36 years old. Cough. TECHNIQUE: Single AP portable view of the chest. COMPARISON: April 07, 2012. FINDINGS: The lungs are clear and expanded. There is no demonstrated pleural abnormality. Normal size heart. Normal mediastinum and [place]. Normal visualized pulmonary arteries. Normal visualized aortic arch and descending thoracic aorta. Normal visualized thoracic spine. Normal visualized ribs, clavicles, and shoulders. There is no demonstrated abnormality of the visualized soft tissue structures of the upper abdomen. RAD/Chest 1 View (Portable) IMPRESSION: No acute cardiopulmonary disease or major interval change. Electronically Signed: Chris Servin DO at 17:16 [facility] ,
--- NOTE | 2022-02-06 16:25 | EX.ED.DYSGE1 ---
HPI <RAVINDER Lee - Last Filed: 02/06/22 17:29> History of Present Illness Chief Complaint: General Illness Narrative Narrative: 36-year-old female with no past medical history, tobacco use presents with 3 days of subjective fever and chills, myalgias, and productive cough. She states her throat feels very dry and she has significant chest pain with coughing feels mildly short of breath. No N/V/D. No sick contacts. PFSH <RAVINDER Lee - Last Filed: 02/06/22 17:29> [facility] Medical History Anxiety Home Medications famotidine 20 mg tablet 20 mg PO BID #28 TABLETS 10/31/20 [Rx Last Taken Unknown] hydroxyzine HCl 50 mg tablet 50 mg PO TID 10/31/20 [History Last Taken Unknown] ondansetron 4 mg disintegrating tablet 4 mg PO Q8H PRN PRN Nausea #15 tabs 10/31/20 [Rx Last Taken Unknown] quetiapine 400 mg tablet,extended release 24 hr (Seroquel XR) 400 mg PO QHS 10/31/20 [History Last Taken Unknown] sucralfate 1 gram tablet (Carafate) 1 g PO Q6H #56 tabs 10/31/20 [Rx Last Taken Unknown] ciprofloxacin HCl 500 mg tablet (Cipro) 500 mg PO BID #14 tabs 08/30/21 [Rx Last Taken Unknown] dicyclomine 20 mg tablet 20 mg PO TID PRN cramps #20 tabs 08/30/21 [Rx Last Taken Unknown] metronidazole 500 mg tablet 500 mg PO Q8H 7 days #21 tabs 08/30/21 [Rx Last Taken Unknown] ondansetron 4 mg disintegrating tablet 4 mg PO Q8H PRN nausea and vomiting #10 tabs 08/30/21 [Rx Last Taken Unknown] omeprazole 20 mg capsule,delayed release 20 mg PO DAILY #30 CAPSULES 11/10/21 [Rx Last Taken Unknown] ondansetron 4 mg disintegrating tablet 4 mg PO Q8H PRN PRN Nausea #10 tabs 11/10/21 [Rx Last Taken Unknown] Allergy/AdvReac Type Severity Reaction Status Date / Time Penicillins Allergy Swelling Verified 02/06/22 16:02 Surgical History History of breast augmentation Social History Smoking Status: Current every day smoker tobacco type: cigarettes substance use type: does not use ROS <RAVINDER Lee - Last Filed: 02/06/22 17:29> ROS ED ROS Narrative Constitutional: Positive for fever, chills, malaise. Eyes: Negative for visual change. ENT: Positive for sore throat, ear pain, rhinorrhea. CVS: Negative for palpitations, chest pain, syncope. Respiratory: Positive for shortness of breath, cough. GI: Negative for abdominal pain, nausea, vomiting, diarrhea, constipation, melena, hematochezia. : Negative for dysuria, hematuria or frequency. Neuro: Negative for headache, motor/sensory dysfunction. Skin: Negative for rash, abscess, or wound. Musc: Positive for myalgias. Heme: Negative for easy bruising, bleeding, lymphadenopathy. EXAM <RAVINDER Lee - Last Filed: 02/06/22 17:29> Physical Exam Narrative Exam Narrative: CONST: Patient sitting in no acute distress. EYES: Normal inspection. ENT: Normal inspection, pharyngeal erythema but no tonsillar swelling or exudate, midline uvula, moist mucous membranes. NECK: Normal inspection. Trachea midline. Supple, no meningismus. RESP: No respiratory distress, CTAB. CVS: Regular rate and rhythm, no murmur, no gallop. ABD: Soft and nontender, no guarding or rebound, nondistended. SKIN: Color normal, no rash, warm, dry, intact. EXTREMITIES: Normal appearance, no pedal edema. NEURO: Oriented x4. PSYCH: Normal affect. Const Vital Signs: 02/06/22 16:00 02/06/22 16:08 Temperature 98.2 F Temperature Source Temporal Pulse Rate 87 Respiratory Rate 18 Respiratory Effort Short of Breath Respiratory Pattern Normal Blood Pressure 133/121 H Blood Pressure Mean 125 Pulse Ox 100 Oxygen Delivery Method Room Air <Golden Alonso MD - Last Filed: 02/06/22 21:02> Physical Exam Const Vital Signs: 02/06/22 16:00 02/06/22 16:08 Temperature 98.2 F Temperature Source Temporal Pulse Rate 87 Respiratory Rate 18 Respiratory Effort Short of Breath Respiratory Pattern Normal Blood Pressure 133/121 H Blood Pressure Mean 125 Pulse Ox 100 Oxygen Delivery Method Room Air [facility] <RAVINDER Lee - Last Filed: 02/06/22 17:29> [facility] Narrative Medical decision making narrative: Patient presents with URI symptoms and myalgias. She appears well and nontoxic. Afebrile and vital signs within normal limits. Her exam is benign and lungs are clear. CXR shows no acute process and COVID/flu swabs are also negative. She had some symptomatic improvement after Toradol. I recommended adding NSAIDs to her regimen of NyQuil/DayQuil for optimal pain control. Discussed return precautions for her viral URI and she was discharged in stable condition. Lab Data Attestation: I reviewed the patient's lab results. Radiography Diagnostic Testing: Clinical Impression(s) from Imaging Studies Chest X-Ray 02/06/22 16:25 IMPRESSION: No acute cardiopulmonary disease or major interval change. Electronically Signed: Chris Servin DO at 17:16 [facility] Reading Location ID and State: [address] [place] [address] Tel [phone], Service support , ED attending interpretation of 1 view chest x-ray shows normal heart size, no acute infiltrate edema or effusion. <Golden Alonso MD - Last Filed: 02/06/22 21:02> [facility] Narrative Medical decision making narrative: Patient presents with URI symptoms and myalgias. She appears well and nontoxic. Afebrile and vital signs within normal limits. Her exam is benign and lungs are clear. CXR interpreted by ED physician shows no acute process and COVID/flu swabs are also negative. She had some symptomatic improvement after Toradol. I recommended adding NSAIDs to her regimen of NyQuil/DayQuil for optimal pain control. Discussed return precautions for her viral URI and she was discharged in stable condition. I have personally performed a face to face assessment of the patient and have reviewed the FORREST Note. I performed a substantive portion of the visit including all aspects of the following. My ricketts findings include: History is URI symptoms, body aches/myalgias Exam is afebrile. Vital signs noted. Regular rate and rhythm. Lungs clear to auscultation bilaterally. Abdomen soft and nontender. Medical Decision Making x-ray interpreted by myself shows no acute process, no pneumonia. I do not feel antibiotics are indicated. Symptomatic treatment. Follow-up primary care. Discharge. Other additions or changes: [None] Radiography Diagnostic Testing: Clinical Impression(s) from Imaging Studies Chest X-Ray 02/06/22 16:25 IMPRESSION: No acute cardiopulmonary disease or major interval change. Electronically Signed: Chris Servin DO at 17:16 EST Reading Location ID and State: [address] [place] [address] Tel [phone], Service support , Discharge Plan Triage Chief Complaint: General Illness ED Midlevel Provider: Jessica Kaufman ED Provider: Golden Alonso Dx/Rx/DC Orders Clinical Impression: Upper respiratory infection, viral Instructions: ED Viral Syndrome (Adult) Prescriptions: No Action hydroxyzine HCl 50 mg tablet 50 mg PO TID Label Comments: Take 3 Tablet By Oral Route 1 times per day quetiapine [Seroquel XR] 400 mg Tablet Extended Release 24 Hr 400 mg PO QHS famotidine [famotidine] 20 MG tablet 20 mg PO BID Qty: 28 0RF sucralfate [Carafate] 1 gram tablet 1 g PO Q6H Qty: 56 0RF ondansetron [ondansetron] 4 MG tablet 4 mg PO Q8H PRN PRN (Reason: Nausea) Qty: 15 0RF metronidazole 500 mg tablet 500 mg PO Q8H 7 Days Qty: 21 0RF ciprofloxacin HCl [Cipro] 500 mg tablet 500 mg PO BID Qty: 14 0RF dicyclomine 20 mg tablet 20 mg PO TID PRN (Reason: cramps) Qty: 20 0RF ondansetron 4 mg tablet,disintegrating 4 mg PO Q8H PRN (Reason: nausea and vomiting) Qty: 10 0RF omeprazole [omeprazole] 20 mg capsule,delayed release(DR/EC) 20 mg PO DAILY Qty: 30 0RF ondansetron [ondansetron] 4 mg tablet,disintegrating 4 mg PO Q8H PRN PRN (Reason: Nausea) Qty: 10 0RF Primary Care Provider: Claudia Reynoso NP Referrals: Claudia Reynoso NP, [facility] [Primary Care Provider] - Activity Restrictions/Additional Instructions: In addition to the DayQuil/NyQuil you can take ibuprofen 800 mg every 6 hours for better pain control. Return to ER if you have difficulty breathing or symptoms worsen. Disposition Disposition: Home, Self Care Discharge Date/Time: 02/06/22 18:15
[2022-02-06] MEDS: Ketorolac 15 MG/ML Vial IM (16:31)
== END 2022-02-06 18:15 | disposition home or self-care (01) ==
PROVIDERS: Emergency Provider Emergency Medicine; PCP Nurse Practitioner Family; Visit Provider Emergency Medicine
DX: J06.9 Acute upper respiratory infection, unspecified (principal); F17.210 Nicotine dependence, cigarettes, uncomplicated
CPT/HCPCS: 71045; 87428; 96372; 99283

== ENCOUNTER 2022-09-10 23:56 | Emergency (ER) | payer MEDICAID, SELFPAY ==
[2022-09-10 23:57] VITALS: BP 123/99; PULSE 118; RESP 18; TEMP 35.9; O2SAT 100
[2022-09-11 00:07] VITALS: BMI 22.5
[2022-09-11 00:09] VITALS: PULSE 110; RESP 34; O2SAT 100
--- NOTE | 2022-09-11 00:14 | EKG12_ITS ---
Test Reason : CHEST OTHER Blood Pressure : / mmHG Vent. Rate : 104 BPM Atrial Rate : 104 BPM P-R Int : 146 ms QRS Dur : 068 ms QT Int : 312 ms P-R-T Axes : 078 077 073 degrees QTc Int : 410 ms Sinus tachycardia Otherwise normal ECG Confirmed by MANSOOR GUPTA, LEW ([id number]), editor news ANN ROBERTS ([id number]) on 09/12/2022 1:03:12 PM Referred By: APRIL Confirmed By:LEW MAX MD
--- NOTE | 2022-09-11 00:18 | ED.VIS.CHEST ---
HPI History of Present Illness Chief Complaint: Chest Other Informant: patient Narrative Narrative: Patient presents with left-sided chest pain. Patient states that she woke up yesterday morning and had this chest pain. It is below the breast about 2 to 3 inches left of midline. It is very well isolated. It hurts if she moves or presses on it or takes a deep breath. She is not actually short of breath. She is not coughing. She has no travel surgery immobilization personal family history of DVT or leg swelling. No abdominal pains. No known family history of heart disease. She is a smoker but has no diabetes blood pressure or high cholesterol or history of heart problems. She states she gets reflux sometimes but this does not seem like reflux at all. She states she oftentimes gets pain in her chest from her breast implants. She states she knows they have been bad for 18 years because they just do not seem right. She has not had them evaluated. She has not noticed any shift or motion or redness leakage or change in them recently. No nipple discharge. No rashes. No swelling. She has tried Tylenol at home but it has not helped the pain. [facility] Medical History Anxiety Home Medications famotidine 20 mg tablet 20 mg PO BID #28 TABLETS 10/31/20 [Rx Last Taken Unknown] hydroxyzine HCl 50 mg tablet 50 mg PO TID 10/31/20 [History Last Taken Unknown] ondansetron 4 mg disintegrating tablet 4 mg PO Q8H PRN PRN Nausea #15 tabs 10/31/20 [Rx Last Taken Unknown] quetiapine 400 mg tablet,extended release 24 hr (Seroquel XR) 400 mg PO QHS 10/31/20 [History Last Taken Unknown] sucralfate 1 gram tablet (Carafate) 1 g PO Q6H #56 tabs 10/31/20 [Rx Last Taken Unknown] ciprofloxacin HCl 500 mg tablet (Cipro) 500 mg PO BID #14 tabs 08/30/21 [Rx Last Taken Unknown] dicyclomine 20 mg tablet 20 mg PO TID PRN cramps #20 tabs 08/30/21 [Rx Last Taken Unknown] metronidazole 500 mg tablet 500 mg PO Q8H 7 days #21 tabs 08/30/21 [Rx Last Taken Unknown] ondansetron 4 mg disintegrating tablet 4 mg PO Q8H PRN nausea and vomiting #10 tabs 08/30/21 [Rx Last Taken Unknown] omeprazole 20 mg capsule,delayed release 20 mg PO DAILY #30 CAPSULES 11/10/21 [Rx Last Taken Unknown] ondansetron 4 mg disintegrating tablet 4 mg PO Q8H PRN PRN Nausea #10 tabs 11/10/21 [Rx Last Taken Unknown] prednisone 20 mg tablet 60 mg PO DAILY #15 TABLETS 09/11/22 [Rx Last Taken Unknown] tramadol 50 mg tablet 50 mg PO Q6H PRN pain 3 days #10 tabs 09/11/22 [Rx Last Taken Unknown] Allergy/AdvReac Type Severity Reaction Status Date / Time Penicillins Allergy Swelling Verified 09/10/22 23:57 Surgical History History of breast augmentation Social History Smoking Status: Current every day smoker tobacco type: cigarettes substance use type: does not use ROS ROS ED Constitutional Constitutional ED: Denies chills, fever(s), subjective or sweats Eyes Eyes: Denies change in vision ENT ENT ED: Denies rhinorrhea or sore throat Cardiovascular Cardiovascular: Reports as per HPI Respiratory/Chest Respiratory/Chest: Denies cough, dyspnea or sputum Gastrointestinal Gastrointestinal: Denies diarrhea, nausea or vomiting Musculoskeletal Musculoskeletal: Denies myalgias Integumentary Denies rash Neurologic Neurologic: Denies headache(s) Psychiatric Psychiatric: Reports anxiety Endocrine Endocrinology: Denies polydipsia or polyuria Hematologic/Lymphatic Hematologic/Lymphatic: Denies easy bleeding, easy bruising or lymphadenopathy Allergic/Immunologic Allergic/Immunologic ED: Denies urticaria EXAM Physical Exam Narrative Exam Narrative: CONSTITUTIONAL: Patient is rocking back and forth in bed crying loudly. HEENT: No notable trauma. Mucous membranes moist. No sinus tenderness. No indication of pain with swallowing. EYES: No conjunctival injection. No proptosis. No pallor. NECK:No JVD. No stridor. CARDIOVASCULAR: Mildly tachycardic rate. Regular rhythm. No notable murmur. No JVD. RESPIRATORY: No respiratory distress. Breathing is unlabored. No wheezes. No rhonchi. No rales. No pain with a deep breath. No chest wall shows no redness or mass. Exam was done with nurse Arely in attendance. She has focal tenderness at the left of sternal area approximately Byron the fifth or so rib area. No redness or skin changes in the area. Implant does not appear to be abnormal at this time. GASTROINTESTINAL: Not distended. Bowel sounds are normal. No tenderness. No guarding. No rebound. No palpable mass. No bruit is heard. Her pain does not at all appear to be coming from abdomen. GENITOURINARY: No tenderness over the bladder. No CVA tenderness. MUSCULOSKELETAL: Atraumatic. No peripheral edema. No cord. No tenderness along the deep venous system. No asymmetry. No distended veins. NEUROLOGICAL: Patient is alert and appropriate. No focal deficit noted. SKIN: No noted rashes. No diaphoresis. PSYCHIATRIC: Patient is crying rocking back and forth. I believe the discomfort is making her very anxious and nervous. We will try to help with this. Const Vital Signs: 09/10/22 23:57 09/11/22 00:08 09/11/22 00:09 Temperature 96.7 F L Temperature Source Temporal Pulse Rate 118 H 110 H Respiratory Rate 18 34 H Respiratory Effort Normal Non-Labored Respiratory Pattern Normal Blood Pressure 123/99 H Blood Pressure Mean 107 Pulse Ox 100 100 Oxygen Delivery Method Room Air 09/11/22 00:29 Temperature Temperature Source Pulse Rate Respiratory Rate Respiratory Effort Respiratory Pattern Blood Pressure Blood Pressure Mean Pulse Ox Oxygen Delivery Method Room Air MDM MDM MDM Narrative Medical decision making narrative: My independent interpretation the patient's single view x-ray shows normal cardiac silhouette no infiltrate pneumothorax or abnormal mediastinum. No subcutaneous air. Final reading is pending. Patient CBC showed mildly high white count which is a nonspecific finding. Remainder of CBC is essentially normal. Patient's electrolytes are normal. No sign of renal dysfunction or electrolyte abnormalities. Patient's troponin is unmeasurable despite approximately a day and a half of symptoms. Patient's D-dimer is below the lowest we can measure also after a day and a half of symptoms. Patient's is negative. Patient is feeling better. Her heart rates about 84-86 now. She states it still hurts when she moves presses or bruits but nowhere near as much. Although there is no known injury, this appears to be very musculoskeletal on exam and history. She states she does sleep on a couch so she may have twisted this in someway. She has been trying Tylenol and Motrin without help. I will give a short course of prednisone as I do think this is sort of an inflammatory process. I will write for a few pain pills. I did her online prescribing report which is completely negative in the last 2 years. Patient should return with fevers, trouble breathing, worsening pain, numbness lightheadedness. She has excellent pulses. She is a day and a half into this with so far negative work-up. I do not think further imaging is necessary such as CAT scan. History & Record Review Additional record(s) reviewed:: Prior inpatient record Lab Data Attestation: I reviewed the patient's lab results. Labs: Laboratory Results - last 24 hr 09/11/22 09/11/22 09/11/22 00:15 00:15 00:15 WBC 14.9 H RBC 4.58 Hgb 14.2 Hct 44.0 MCV 96.1 MCH 31.0 MCHC 32.3 RDW Std Deviation 45.7 H RDW Coeff of Ashlee 12.9 Plt Count 338 MPV 9.6 Immature Gran % (Auto) 0.300 Neut % (Auto) 53.4 Lymph % (Auto) 35.7 Vigo % (Auto) 7.3 Eos % (Auto) 2.8 Baso % (Auto) 0.5 Absolute Neuts (auto) 8.0 H Absolute Lymphs (auto) 5.32 H Nucleated RBC % 0 Differential Comment SCANNED Reactive Lymphocytes 1+ D-Dimer Quant (PE/DVT) < 0.27 L Sodium 141 Potassium 3.7 Chloride 106 Carbon Dioxide 30.0 Anion Gap 5 BUN 13 Creatinine 0.76 Estim Creat Clear Calc 79.38 Est GFR (MDRD) Af Amer 110 Est GFR (MDRD) Non-Af 91 BUN/Creatinine Ratio 17.2 Glucose 99 Calcium 9.2 Troponin I High Sens < 3 L Serum , Qual 09/11/22 00:15 WBC RBC Hgb Hct MCV MCH MCHC RDW Std Deviation RDW Coeff of Ashlee Plt Count MPV Immature Gran % (Auto) Neut % (Auto) Lymph % (Auto) Vigo % (Auto) Eos % (Auto) Baso % (Auto) Absolute Neuts (auto) Absolute Lymphs (auto) Nucleated RBC % Differential Comment Reactive Lymphocytes D-Dimer Quant (PE/DVT) Sodium Potassium Chloride Carbon Dioxide Anion Gap BUN Creatinine Estim Creat Clear Calc Est GFR (MDRD) Af Amer Est GFR (MDRD) Non-Af BUN/Creatinine Ratio Glucose Calcium Troponin I High Sens Serum , Qual NEGATIVE EKG Initial EKG: Comments: My independent interpretation the patient's EKG done for chest pain shows sinus tachycardia with overall rate of 104. EKG was done during symptoms. There is some baseline variation and motion artifact but no acute ST elevation or depression. No ectopy. UT interval, QRS duration and QTc are normal. Discharge Plan Triage Chief Complaint: Chest Other ED Provider: Jamie Aguilar Dx/Rx/DC Orders Clinical Impression: Left-sided chest wall pain Instructions: ED Chest Pain, Uncertain Cause Prescriptions: New prednisone 20 mg tablet 60 mg PO DAILY Qty: 15 0RF tramadol 50 mg tablet 50 mg PO Q6H PRN (Reason: pain) 3 Days Qty: 10 0RF No Action hydroxyzine HCl 50 mg tablet 50 mg PO TID Label Comments: Take 3 Tablet By Oral Route 1 times per day quetiapine [Seroquel XR] 400 mg Tablet Extended Release 24 Hr 400 mg PO QHS famotidine [famotidine] 20 MG tablet 20 mg PO BID Qty: 28 0RF sucralfate [Carafate] 1 gram tablet 1 g PO Q6H Qty: 56 0RF ondansetron [ondansetron] 4 MG tablet 4 mg PO Q8H PRN PRN (Reason: Nausea) Qty: 15 0RF metronidazole 500 mg tablet 500 mg PO Q8H 7 Days Qty: 21 0RF ciprofloxacin HCl [Cipro] 500 mg tablet 500 mg PO BID Qty: 14 0RF dicyclomine 20 mg tablet 20 mg PO TID PRN (Reason: cramps) Qty: 20 0RF ondansetron 4 mg tablet,disintegrating 4 mg PO Q8H PRN (Reason: nausea and vomiting) Qty: 10 0RF omeprazole [omeprazole] 20 mg capsule,delayed release(DR/EC) 20 mg PO DAILY Qty: 30 0RF ondansetron [ondansetron] 4 mg tablet,disintegrating 4 mg PO Q8H PRN PRN (Reason: Nausea) Qty: 10 0RF Primary Care Provider: Claudia Reynoso NP Referrals: Claudia Reynoso NP, [facility]PERATOR-[facility] [Primary Care Provider] - 3-5 Days if not improving Activity Restrictions/Additional Instructions: Ice and rest the area. Disposition Disposition: Home, Self Care
[2022-09-11] MEDS: 0.9% Normal Saline 1,000 ML 1000 ML IV (00:25)
[2022-09-11] MEDS: Ketorolac 15 MG/ML Vial IV (00:25)
[2022-09-11] MEDS: LORazepam 2 MG/ML Syringe 1 MG IV (00:25)
[2022-09-11 00:28] LABS: Absolute Lymphocyte Count 5.32 X10^3/uL (0.83-4.51); Basophil# 0.07 X10^3/uL; Basophil% 0.5 % (0-1); Eosinophil# 0.42 X10^3/uL; Eosinophils% 2.8 % (0-5); Hemoglobin 14.2 g/dL (12.0-15.0); Lymphocyte # 5.32 X10^3/ul (0.83-4.51); Lymphocyte % 35.7 % (19-41); Mean Corp Hgb Conc 32.3 g/dL (32-36); Mean Corpuscular Volume 96.1 fL (81-99); Mean Platelet Vol. 9.6 fl (6.2-12.0); Monocyte# 1.09 X10^3/uL; Monocyte% 7.3 % (0-10); NRBC Flagged by Analyzer 0 % (0-5); Neutrophil # 7.98 X10^3/uL (2.7-7.7); Neutrophil % 53.4 % (47-70); POSITIVE DIFFERENTIAL YES; Platelet Count 338 K/mm3 (150-450); RBC Distribution Width CV 12.9 % (11.6-14.6); RBC Distribution Width SD 45.7 fl (35.1-43.9); Red Blood Count 4.58 M/mm3 (4.2-5.4); White Blood Count 14.9 K/mm3 (4.4-11.0)
[2022-09-11 00:29] LABS: Differential Indicated SCAN CRITERIA MET
--- NOTE | 2022-09-11 00:30 | RAD_ITS ---
INDICATION: chest pain EXAMINATION/TECHNIQUE: X-RAY - XR Chest 1 View COMPARISON: 02/06/2022 chest radiograph. Findings: Single frontal view of the chest. LUNG PARENCHYMA: No acute focal airspace disease or mass lesion. PLEURA: No pleural effusion. No pneumothorax. HEART/GREAT VESSELS: Cardiomediastinal silhouette is unremarkable. BONES: Osseous structures are unremarkable for age. RAD/Chest 1 View (Portable) IMPRESSION: Chest with no acute disease. Electronically Signed: Tor Chavez MD at 1:31 EDT ,
[2022-09-11 00:42] LABS: Internal QC Validated? YES +Cl - CLEAR BKGD; Pregnancy, Serum, hCG Quali. NEGATIVE Negative
[2022-09-11 00:43] LABS: D-Dimer Quantitative (DVT/PE) < 0.27 FEU/ug/m (0.27-0.49)
[2022-09-11 00:48] LABS: Anion Gap 5 (5-15); BUN 13 mg/dL (7-18); BUN/Creat Ratio 17.2 RATIO (10-20); Calcium,Total 9.2 mg/dL (8.5-10.1); Chloride 106 mmol/L (98-107); Creatinine, Serum 0.76 mg/dL (0.55-1.02); Differential Comment SCANNED; EST Glomerular Filtration Rate 91 mL/min (>60); Est Glom Filt Rate - Afr Amer 110 mL/min (>60); Estimated Creatinine Clearance 79.38 ml/min; Glucose 99 mg/dL (74-106); Potassium 3.7 mmol/L (3.5-5.1); Reactive Lymphocyte 1+; Sodium Level 141 mmol/L (136-145); Troponin-I HS < 3 pg/mL (3.0-54.0)
[2022-09-11] MEDS: predniSONE 20 MG Tablet 60 MG PO (01:38)
[2022-09-11 01:39] VITALS: BP 103/65; PULSE 96; RESP 16
== END 2022-09-11 01:43 | disposition home or self-care (01) ==
PROVIDERS: Emergency Provider Emergency Medicine; PCP Nurse Practitioner Family; Visit Provider Emergency Medicine
DX: R07.89 Other chest pain (principal); F17.210 Nicotine dependence, cigarettes, uncomplicated
CPT/HCPCS: 71045; 80048; 84484; 84703; 85025; 85379; 93005; 96361; 96374; 96375; 99285; J7030; A4216

== ENCOUNTER 2023-10-01 16:04 | Emergency (ER) | payer MEDICAID, SELFPAY ==
[2023-10-01 16:05] VITALS: BP 119/84; PULSE 121; RESP 26; TEMP 36; O2SAT 100
--- NOTE | 2023-10-01 16:23 | CT_ITS ---
EXAM: CT ABDOMEN AND PELVIS WITH INTRAVENOUS CONTRAST CLINICAL INDICATION: abdominal pain with bloody stools TECHNIQUE: Helically acquired images were obtained of the abdomen and pelvis with intravenous contrast. This CT exam was performed using one or more of the following dose reduction techniques: automated exposure control, adjustment of the mA and/or kV according to patient size, and/or use of iterative reconstruction technique. CONTRAST: IV 100mL Isovue-370 RADIATION DOSE: CTDIvol = 12.49 mGy, DLP = 602.12 mGy-cm COMPARISON: No relevant prior studies available. FINDINGS: LOWER THORAX: Unremarkable. Lung bases are clear. No cardiomegaly. No significant pericardial effusion. ABDOMEN: LIVER: Unremarkable. Homogeneous. No focal mass. GALLBLADDER AND BILE DUCTS: Unremarkable. No calcified gallstones. No gallbladder distention or wall edema. No intra- or extrahepatic biliary ductal dilation. PANCREAS: Unremarkable. No focal cystic or solid mass. SPLEEN: Unremarkable. Normal size without focal cystic or solid mass. ADRENALS: Unremarkable. No nodules. KIDNEYS AND URETERS: Unremarkable. Normal renal size and position. No hydronephrosis. STOMACH AND BOWEL: Mural wall thickening of the distal transverse colon, descending colon, and rectosigmoid colon suggesting a distal colitis. No stomach or bowel distention. PELVIS: APPENDIX: Normal appearance of the appendix. BLADDER: Unremarkable. REPRODUCTIVE: Uterus is within normal limits. IUD within the uterus. ABDOMEN and PELVIS: INTRAPERITONEAL SPACE: Unremarkable. No ascites or other fluid collection. No free air. BONES/JOINTS: Unremarkable. No suspicious lytic or blastic abnormality. SOFT TISSUES: Bilateral breast implants. Umbilical hernia containing fat. VASCULATURE: Unremarkable. Abdominal aorta is non-dilated. LYMPH NODES: Unremarkable. No enlarged lymph nodes. CT/Abdomen/Pelvis W IV Cont ONLY IMPRESSION: Mural wall thickening of the distal transverse colon, descending colon, and rectosigmoid colon suggesting a distal colitis. Electronically Signed: Orlando Lucero MD at 18:00 EDT ,
--- NOTE | 2023-10-01 16:24 | EDS_ITS ---
<Statement entered by Ana Farias MD - 10/01/23 23:53> I have personally performed a face to face assessment of the patient and have reviewed the FORREST Note. Patient presents secondary to lower abdominal pain and bloody bowel movements this morning. She denies personal history of Crohn's or IBS, but does have family history. Patient lying in bed in no acute distress, but is anxious and tearful. Head and neck examination unremarkable. Heart is regular rate and rhythm. Lung sounds are clear. Abdomen is soft with mild tenderness of the lower abdomen. No guarding or rebound at this time. CBC reveals slightly elevated white count at 12.0 with a 58% neutrophil count. Hemoglobin is 14.4. Chemistry studies, LFTs, lipase are normal. test is negative. CT scan of the abdomen and pelvis is obtained that reveals evidence of distal colitis. Test results discussed with the patient. She will be treated with a course of Cipro and Flagyl. She was referred to GI for follow-up. Return instructions provided. HPI History of Present Illness Chief Complaint: Abd Pain Narrative Narrative: Patient is a 37-year-old female with history of acute on chronic abdominal pain, anxiety, depression who presents to the emergency department for severe abd ominal pain that woke her up at roughly 5 in the morning. Patient states a feeling of severe burning sensation, she had 3 total bowel movements this morning, 2 were bloody. Patient states that she has never had this before. 2 to 3 years ago, she did have a complete workup secondary to chronic abdominal pain that did not yield any answers. Patient denies any nausea or vomiting. Patient denies any recent surgeries. Patient does use marijuana daily and has been for greater than 15 years. [facility] Medical History Anxiety Home Medications ?Medication ?Instructions ?Recorded ?Last Taken ?Type famotidine 20 mg tablet 20 mg PO BID #28 TABLETS 10/31/20 Unknown Rx hydroxyzine HCl 50 mg tablet 50 mg PO TID 10/31/20 Unknown History ondansetron 4 mg disintegrating 4 mg PO Q8H PRN PRN Nausea #15 tabs 10/31/20 Unknown Rx tablet quetiapine 400 mg tablet,extended 400 mg PO QHS 10/31/20 Unknown History release 24 hr (Seroquel XR) sucralfate 1 gram tablet (Carafate) 1 g PO Q6H #56 tabs 10/31/20 Unknown Rx ciprofloxacin HCl 500 mg tablet 500 mg PO BID #14 tabs 08/30/21 Unknown Rx (Cipro) dicyclomine 20 mg tablet 20 mg PO TID PRN cramps #20 tabs 08/30/21 Unknown Rx metronidazole 500 mg tablet 500 mg PO Q8H 7 days #21 tabs 08/30/21 Unknown Rx ondansetron 4 mg disintegrating 4 mg PO Q8H PRN nausea and 08/30/21 Unknown Rx tablet vomiting #10 tabs omeprazole 20 mg capsule,delayed 20 mg PO DAILY #30 CAPSULES 11/10/21 Unknown Rx release ondansetron 4 mg disintegrating 4 mg PO Q8H PRN PRN Nausea #10 tabs 11/10/21 Unknown Rx tablet prednisone 20 mg tablet 60 mg (3 x 20 mg) PO DAILY #15 09/11/22 Unknown Rx TABLETS tramadol 50 mg tablet 50 mg PO Q6H PRN pain 3 days #10 09/11/22 Unknown Rx tabs ciprofloxacin HCl 500 mg tablet 500 mg PO BID #20 tabs 10/01/23 Unknown Rx (Cipro) metronidazole 500 mg tablet 500 mg PO TID #30 tabs 10/01/23 Unknown Rx oxycodone-acetaminophen 5 mg-325 1 tab PO Q8H PRN pain 3 days #8 10/01/23 Unknown Rx mg tablet (Percocet) tabs Allergy/AdvReac Type Severity Reaction Status Date / Time Penicillins Allergy Swelling Verified 10/01/23 16:05 Surgical History History of breast augmentation Social History Smoking Status: Current every day smoker tobacco type: cigarettes substance use type: does not use ROS ROS ED ROS Narrative Constitutional: Negative for fever, chills, weight loss, weakness Eyes: Negative for vision loss, vision change, double vision ENT: Negative for any sore throat, ear pain, congestion Cardiovascular: Negative for any chest pain, tightness, palpitations Respiratory: Negative for any cough, sputum production, hemoptysis, dyspnea, dyspnea on exertion, orthopnea Gastrointestinal: Negative for any nausea, vomiting, diarrhea, constipation, blood in vomit. Positive for abdominal pain, blood in stool : Negative for any urinary frequency, dysuria, retention, blood in urine Muscle skeletal: Negative for any neck pain, back pain Neurological: Negative for any headache, syncope, dizziness Skin: Negative for any rashes, itching, abrasions, lacerations Psychiatric: Negative for any depression, anxiety, stress, suicidal ideation, homicidal ideation Hematologic: Negative for any excessive bruising, easy bleeding EXAM Physical Exam Narrative Exam Narrative: Vital signs reviewed. HEET: Head normocephalic atraumatic, TMs clear bilaterally. Posterior pharynx is clear, moist mucous membranes. Nares clear bilaterally. Neck: Supple with no lymphadenopathy or tenderness. No signs of meningismus. Cardiac: Regular rate and rhythm no murmurs gallops or rubs, equal peripheral pulses bilaterally. Respiratory: Lungs clear to auscultation bilaterally. No chest tenderness. Abdomen: Soft, nondistended. No abdominal bruit or pulsatile masses. No hepatosplenomegaly. Abdomen was soft, no localization of tenderness. No peritoneal signs. Extremities: No peripheral edema, no signs of gross trauma or deformity. Active full range of motion of all extremities. Neuro: Cranial nerves II through XII intact, no focal neurological deficits. Skin: Clean dry and intact with no rash, purpura, petechiae, vesicles or pustules. Backs/flank: No CVA tenderness, no midline spinal tenderness, no deformity. Psych: Normal mood and affect. No SI, HI or acute psychosis. Rectal:Rectal exam was completed with female nurse Chiqui, there is no acute or chronic hemorrhoids. There is no faisal red bleeding. There is no dark stool. Rectal vault was empty. Const Vital Signs: 10/01/23 16:05 10/01/23 18:04 Temperature 96.8 F L Temperature Source Temporal Pulse Rate 121 H 98 Respiratory Rate 26 H 20 H Blood Pressure 119/84 H 119/80 Blood Pressure Mean 95 93 Pulse Ox 100 98 Oxygen Delivery Method Room Air Room Air [facility] Lab Data Labs: Laboratory Results - last 24 hr 10/01/23 16:24 WBC 12.0 H RBC 4.64 Hgb 14.4 Hct 42.9 MCV 92.5 MCH 31.0 MCHC 33.6 RDW Std Deviation 42.2 RDW Coeff of Ashlee 12.4 Plt Count 381 MPV 9.8 Immature Gran % (Auto) 0.200 Neut % (Auto) 58.9 Lymph % (Auto) 30.7 Bryan % (Auto) 7.9 Eos % (Auto) 1.9 Baso % (Auto) 0.4 Absolute Neuts (auto) 7.1 Absolute Lymphs (auto) 3.67 Nucleated RBC % 0 Sodium 137 Potassium 3.7 Chloride 108 H Carbon Dioxide 23.0 Anion Gap 6 BUN 15 Creatinine 0.77 Est GFR (MDRD) Af Amer 106 Est GFR (MDRD) Non-Af 88 BUN/Creatinine Ratio 19.4 Glucose 94 Lactic Acid 0.9 Calcium 9.1 Total Bilirubin 0.30 AST 11 L ALT 26 Alkaline Phosphatase 61 Total Protein 8.1 Albumin 4.4 Globulin 3.7 Albumin/Globulin Ratio 1.2 Lipase 28 Serum , Qual NEGATIVE Radiography Diagnostic Testing: Clinical Impression(s) from Imaging Studies Abdomen/Pelvis CT 10/01/23 16:23 IMPRESSION: Mural wall thickening of the distal transverse colon, descending colon, and rectosigmoid colon suggesting a distal colitis. Electronically Signed: Orlando Lucero MD at 18:00 EDT , Treatment and Re-Evaluation :: Differential diagnosis includes however is not limited to: Colitis, diverticulitis, hemorrhoids, acute appendicitis, cannabis hyperemesis Patient appears to be in mild distress secondary to abdominal pain, vital signs are stable and nontoxic-appearing. Patient's physical examination yielded no red flag signs. Patient received basic laboratory values, rectal exam was completed with female nurse quality control tester, there is no faisal red bleeding. Stool occult was sent. Patient will receive CT scan of the abdomen pelvis with IV contrast. IV morphine, Zofran, fluids will be given. All radiologic examinations were read, reviewed by the emergency department attending. From these reads, a plan of care will be put in place. Patient CBC shows slight leukocytosis with a white blood count of 12, chemistries are unremarkable, patient is not lipase is negative. Patient did have some blood in her stool, CT scan shows mural wall thickening of the distal transverse colon, descending colon, and rectosigmoid colon suggestive of distal colitis. Secondary to this finding, patient will be treated with antibiotics, secondary to penicillin allergy, she replaced on ciprofloxacin and Flagyl. She will be given a short course of pain medicine. She will follow-up with surgery for a scope. She is instructed return for any worsening symptoms. All questions were answered, patient is stable for discharge. She was given strict return precautions. Discharge Plan Triage Chief Complaint: Abd Pain Other Complaint: GI Bleed ED Midlevel Provider: Tyree Rodriguez ED Provider: Ana Farias Dx/Rx/DC Orders Clinical Impression: Abdominal pain, Colitis Instructions: Abdominal Pain, ED Understanding Colitis, ED Gastritis (Adult) Prescriptions: New ciprofloxacin HCl [Cipro] 500 mg tablet 500 mg PO BID Qty: 20 0RF metronidazole 500 mg tablet 500 mg PO TID Qty: 30 0RF oxycodone-acetaminophen [Percocet] 5-325 mg tablet 1 tab PO Q8H PRN (Reason: pain) 3 Days Qty: 8 0RF No Action hydroxyzine HCl 50 mg tablet 50 mg PO TID Patient Comments: Take 3 Tablet By Oral Route 1 times per day quetiapine [Seroquel XR] 400 mg Tablet Extended Release 24 Hr 400 mg PO QHS famotidine [famotidine] 20 MG tablet 20 mg PO BID Qty: 28 0RF sucralfate [Carafate] 1 gram tablet 1 g PO Q6H Qty: 56 0RF ondansetron [ondansetron] 4 MG tablet 4 mg PO Q8H PRN PRN (Reason: Nausea) Qty: 15 0RF metronidazole 500 mg tablet 500 mg PO Q8H 7 Days Qty: 21 0RF ciprofloxacin HCl [Cipro] 500 mg tablet 500 mg PO BID Qty: 14 0RF dicyclomine 20 mg tablet 20 mg PO TID PRN (Reason: cramps) Qty: 20 0RF ondansetron 4 mg tablet,disintegrating 4 mg PO Q8H PRN (Reason: nausea and vomiting) Qty: 10 0RF omeprazole [omeprazole] 20 mg capsule,delayed release(DR/EC) 20 mg PO DAILY Qty: 30 0RF ondansetron [ondansetron] 4 mg tablet,disintegrating 4 mg PO Q8H PRN PRN (Reason: Nausea) Qty: 10 0RF prednisone 20 mg tablet 60 mg PO DAILY Qty: 15 0RF tramadol 50 mg tablet 50 mg PO Q6H PRN (Reason: pain) 3 Days Qty: 10 0RF Primary Care Provider: Claudia Reynoso NP Referrals: Tor Valdes MD [Med Staff - Active Staff] - Claudia Reynoso NP, [employer] [Primary Care Provider] - Activity Restrictions/Additional Instructions: You need to take the Cipro and Flagyl as directed until finished. This is for your colitis. On these medications you cannot drink alcohol because it can make you extremely ill. Take the pain medicine as needed. You need to follow-up with surgery for a scope. Return for any worsening symptoms. Print Language: Mosotho Disposition Disposition: Home, Self Care
[2023-10-01] MEDS: 0.9% Normal Saline (1000mL) 1,000 ML 999 ML IV (16:25)
[2023-10-01] MEDS: Morphine 4 MG/ML Syringe IV ×2 (16:26→18:19)
[2023-10-01] MEDS: Ondansetron 4 MG/2 ML Vial IV (16:26)
[2023-10-01 16:32] LABS: Absolute Lymphocyte Count 3.67 X10^3/uL (0.83-4.51); Absolute Neutrophil Count 7.1 X10^3/uL (2.0-7.7); Basophil# 0.05 X10^3/uL; Basophil% 0.4 % (0-1); Eosinophil# 0.23 X10^3/uL; Eosinophils% 1.9 % (0-5); Hematocrit 42.9 % (37-47); Hemoglobin 14.4 g/dL (12.0-15.0); Lymphocyte # 3.67 X10^3/ul (0.83-4.51); Lymphocyte % 30.7 % (19-41); Mean Corp Hgb Conc 33.6 g/dL (32-36); Mean Corpuscular Volume 92.5 fL (81-99); Mean Platelet Vol. 9.8 fl (6.2-12.0); Monocyte# 0.94 X10^3/uL; Monocyte% 7.9 % (0-10); NRBC Flagged by Analyzer 0 % (0-5); Neutrophil # 7.06 X10^3/uL (2.7-7.7); Neutrophil % 58.9 % (47-70); Platelet Count 381 K/mm3 (150-450); RBC Distribution Width CV 12.4 % (11.6-14.6); RBC Distribution Width SD 42.2 fl (35.1-43.9); Red Blood Count 4.64 M/mm3 (4.2-5.4)
[2023-10-01 16:42] LABS: Internal QC Validated? YES +Cl - CLEAR BKGD; Pregnancy, Serum, hCG Quali. NEGATIVE Negative
[2023-10-01 16:48] LABS: ALB/GLOB Ratio 1.2 RATIO (0.9-2.4); AST(SGOT) 11 U/L (15-37); Alanine Aminotransfer ALT/SGPT 26 U/L (13-56); Albumin, Serum 4.4 g/dL (3.2-5.0); Alkaline Phosphatase 61 U/L (45-117); Anion Gap 6 (5-15); BUN 15 mg/dL (7-18); BUN/Creat Ratio 19.4 RATIO (10-20); Calcium,Total 9.1 mg/dL (8.5-10.1); Chloride 108 mmol/L (98-107); Creatinine, Serum 0.77 mg/dL (0.55-1.02); EST Glomerular Filtration Rate 88 mL/min (>60); Est Glom Filt Rate - Afr Amer 106 mL/min (>60); Globulin 3.7 g/dL (2.2-4.2); Glucose 94 mg/dL (74-106); Lipase 28 U/L (13-75); Potassium 3.7 mmol/L (3.5-5.1); Protein, Total 8.1 g/dL (6.4-8.2); Sodium Level 137 mmol/L (136-145)
[2023-10-01 17:01] LABS: Lactic Acid 0.9 mmol/L (0.4-1.9)
[2023-10-01 17:53] LABS: Bacteria 0 SEEN /hpf (None Seen); Mucous, Urine 0 SEEN /hpf (<or=2+); Red Blood Cells-Urine 0 SEEN /hpf (0-5); Squamous Epithelial Cells - UA 0 SEEN /hpf (5-10); White Blood Cells 0 SEEN /hpf (0-5)
[2023-10-01 18:03] LABS: Color, Urine Yellow (Yellow); Glucose, Dipstick Normal (Normal); Ketone-Dipstick Negative (Negative); Leukocyte Esterase-Dipstick Negative /ul (Negative); Nitrite-Dipstick Negative (Negative); Occult Blood-Urine Negative /ul (Negative); Protein-Dipstick 15 mg/dl (Negative); Urine Bilirubin Dipstick Negative (Negative); Urine Clarity Clear (Clear); Urine Urobilinogen Normal (Normal); Urine pH 6.5 (5.0 - 8.0)
[2023-10-01 18:04] VITALS: BP 119/80; PULSE 98; RESP 20; O2SAT 98
[2023-10-01] MEDS: metroNIDAZOLE 500 MG Tablet PO (18:27)
[2023-10-01] MEDS: Ciprofloxacin 500 MG Tablet PO (18:27)
[2023-10-01 18:30] VITALS: BP 126/80; PULSE 98; RESP 22; TEMP 36.6; O2SAT 98
== END 2023-10-01 18:32 | disposition home or self-care (01) ==
PROVIDERS: Nurse Practitioner; Emergency Provider Emergency Medicine; PCP Nurse Practitioner Family; Visit Provider Emergency Medicine
DX: K52.9 Noninfective gastroenteritis and colitis, unspecified (principal); F12.90 Cannabis use, unspecified, uncomplicated; F17.210 Nicotine dependence, cigarettes, uncomplicated
CPT/HCPCS: 74177; 80053; 81001; 82274; 83605; 83690; 84703; 85025; 96361; 96374; 96375; 96376; 99282; J7030; Q9967; A4216; J2405